=== PATIENT | female | born 1965 | race Caucasian/White ===

== ENCOUNTER 2019-10-31 16:45 | Inpatient (IN) | payer BC, SELFPAY ==
[2019-10-31] VITALS (9 sets, daily range): BP systolic 111–125; BP diastolic 58–67; PULSE 110–122; RESP 14–36; O2SAT 90–97; BMI 29.2
--- NOTE | ~2019-10-31 | XR_ITS ---
EXAMINATION: XR chest 2V EXAM DATE: 10/31/2019 17:51 INDICATION: Shortness of breath, history COPD. TECHNIQUE: Frontal and lateral projections of the chest obtained and reviewed. Comparison is made to prior examination from 10/18/2018. FINDINGS: Moderate chronic appearing hyperinflation. The lungs are clear. There are no pleural effu sions. The cardiomediastinal silhouette is within normal limits. There is no pneumothorax suspected . The bones are osteopenic. There are bony degenerative changes. IMPRESSION: Moderate hyperinflation. Reviewed, dictated and finalized at location A. HERY MANAGER IMPRESSION: Moderate hyperinflation.
[2019-10-31] MEDS: ALBUTEROL SULFATE NEB 2.5 MG/0.5 ML INH 15 MG INHALATION (17:11)
[2019-10-31] MEDS: IPRATROPIUM BR 0.02% INH SOLN 0.5 MG/2.5 ML VIAL 1.5 MG INHALATION (17:12)
--- NOTE | 2019-10-31 17:12 | ED.SOB ---
HPI - SOB/Dyspnea General Chief Complaint: Shortness of Breath/Dyspnea Stated Complaint: sob Time Seen by Provider: 10/31/19 17:12 Source: patient Mode of arrival: ambulatory Limitations: no limitations History of Present Illness HPI Narrative: The pt is a 54 y/o female who presents to the ED c/o SOB onset a few days ago. Pt states that she has a PMHx of COPD, and that she is on 2L of oxygen at rest and 3L of oxygen with activity typically. She states that her SOB has worsened over the past few days, and she notes that she has not been doing her breathing treatments of Budesonide and Albuterol. Pt states that this happened because she has felt so bad that she has not good at all. She notes that her condition was at its worst today, and that she struggled to even exhale. Pt notes that her cough has not changed and has been dry. She reports nausea, runny nose, and congestion, but denies CP, fever, and BLE swelling. MD elicited complaint: shortness of breath Pertinent past history: COPD Onset (ago): day(s) (a few) Context: other (Not doing breathing treatments) Timing: progressively worsening Known history of: COPD Associated symptoms: cough (Dry, not any worse than normal), nausea/vomiting (Nausea) and other (Congestion, runny nose) Related Data Home Medications Medication Instructions Recorded Confirmed albuterol sulfate 2.5 mg INHALATION DAILY PRN 10/31/19 10/31/19 albuterol sulfate [ProAir HFA] 90 mcg INHALATION DAILY PRN 10/31/19 10/31/19 apixaban [Eliquis] 5 mg PO BID 10/31/19 10/31/19 revefenacin [Yupelri] 175 mcg INHALATION DAILY 10/31/19 10/31/19 Allergies Allergy/AdvReac Type Severity Reaction Status Date / Time Penicillins Allergy Unknown Hives Verified 10/31/19 17:23 Review of Systems Review of Systems: All systems reviewed & are unremarkable except as noted in HPI and below Constitutional: Constitutional: Denies fever(s) ENT: Reports nasal congestion and Reports nasal discharge (Runny nose) Cardiovascular: Cardiovascular: Denies chest pain Respiratory: Respiratory: Reports cough (Dry, not any worse than normal) and Reports dyspnea Gastrointestinal: Gastrointestinal: Reports nausea Musculoskeletal: Musculoskeletal: Denies other (BLE swelling) PMFSH Past Medical History Medical History (Updated 10/31/19 @ 19:12 by Gina Baker MD) Anemia Angina at rest Asthma Bronchitis COPD (chronic obstructive pulmonary disease) Kidney stone On home oxygen therapy 2L at rest, 3L with activity Pulmonary embolism Seizure Surgical History Surgical History (Updated 10/31/19 @ 17:35 by Sherwin Gross) H/O section H/O tubal ligation History of right oophorectomy Hx of tonsillectomy Family History Family History (Updated 10/31/19 @ 22:26 by Zcak Winter, LINSEY) Grandparent Family history of cardiovascular disease Hypertension Mother Family history of cardiovascular disease Family history of elevated blood lipids Social History Social History (Updated 10/31/19 @ 17:35 by Sherwin Gross) Smoking packs per day: 1.5 Smoking cigarettes per day: 30.0 Years smoked: 34 Smoking pack-years: 51.00 Smoking status: Current some day smoker Second hand tobacco smoke exposure: Yes Alcohol intake: never Substance use: never Spiritual care concerns: No Agree to blood products: Yes Comments PCP: Dr. Downs Exam Const: General: alert; No diaphoretic Orientation/consciousness: patient oriented x3 Other: mild distress HENMT: Head: normocephalic and atraumatic Ears: hearing grossly normal bilaterally and external ears normal Mouth: Yes Normal oral and palatal mucosa present and Yes lip normal Throat: posterior oropharynx normal and tonsils normal Eyes: Conjunctivae: conjunctivae normal Pupils: Equal, round and reactive pupils present EOM: EOMs intact bilaterally Neck: Neck: normal visual inspection and no lymphadenopathy Chest: Chest palpation & insp
[2019-10-31] MEDS: methylPREDNISolone SOD SUCC 125 MG VIAL IV PUSH (17:34)
--- NOTE | 2019-10-31 17:34 | ECG_ITS ---
Measurements Intervals [place] Rate: 116 P: 74 [place]: 148 QRS: 88 QRSD: 86 T: 43 QT: 341 QTc: 474 Interpretive Statements SINUS TACHYCARDIA POSSIBLE RIGHT ATRIAL ENLARGEMENT POSSIBLE LEFT ATRIAL ENLARGEMENT INCOMPLETE RIGHT BUNDLE BRANCH BLOCK MINIMAL Q WAVES- INFERIOR LEADS BASELINE ARTIFACT- V1-V3 ABNORMAL ECG Electronically Signed On 10-31-2019 19:43:30 GOLD CHARMER by Fitz Green D.O.
[2019-10-31 17:36] LABS: Alveolar/Arterial O2 Gradient 84.8 mmHg; Base Excess ABG 15.9 mEq/l (+/-2.0); Carboxyhemoglobin 5.5 % THb (0-2.0); Fractional Inspired Oxygen 32 %; HCO3 ABG 45.3 mEq/l (22.0-26.0); Methemoglobin ABG 0.1 %THb (0-1.5); Oxygen Content ABG 14.9 %vol (16.0-22.0); Oxyhemoglobin 81.8 % THb (90.0-100.0); PCO2 ABG 81.4 mmHg (35.0-45.0); Reduced Hemoglobin 12.6 %THb (0-5.0); pH ABG 7.363 (7.350-7.450)
[2019-10-31 17:37] LABS: PO2 ABG 48.1 mmHg (80.0-100.0)
[2019-10-31 17:38] LABS: Device NASAL CANNULA; Site Drawn LEFT BRACHIAL
[2019-10-31 18:15] LABS: Basophils Absolute Auto 0.1 K/mm3 (0.0-0.1); Basophils Percent Auto 0.5 % (0.2-1.2); Eosinophils Absolute Auto 0.2 K/mm3 (0-0.3); Eosinophils Percent Auto 1.5 % (0-4.4); Hematocrit 39.5 % (37.0-47.0); Hemoglobin 11.9 g/dL (12.0-15.0); Immature Granulocyte Absolute 0.03 K/mm3 (0.00-0.031); Immature Granulocyte Percent A 0.3 % (0-0.5); Lymphocytes Absolute Auto 3.72 K/mm3 (0.9-3.2); Lymphocytes Percent Auto 33.9 % (18.3-44.2); Mean Corpuscular HGB Conc 30.1 g/dl (32-36); Mean Corpuscular Volume 96.3 fl (80-100); Monocytes Absolute Auto 0.8 K/mm3 (0.1-0.6); Monocytes Percent Auto 7.5 % (2.6-8.5); Neutrophils Absolute Auto 6.2 K/mm3 (1.3-6.7); Neutrophils Percent Auto 56.3 % (45.5-73.1); Platelet Count Result 187 k/mm3 (150-375); Red Cell Distribution Width 12.5 % (11.5-14.5)
[2019-10-31 18:30] LABS: Alanine Aminotransferase 16 U/L (4-35); Alkaline Phosphatase 64 U/L (38-126); Aspartate Amino Transferase 22 U/L (14-36); Bilirubin,Total 0.3 mg/dL (0.2-1.3); Blood Urea Nitrogen 8 mg/dL (7-17); Calcium 8.9 mg/dL (8.4-10.2); Carbon Dioxide > 40 mmol/L (22-30); Chloride 84 mmol/L (98-107); Estimated CRCL calculation 165 ml/min; Estimated Glomerular Filt Rate > 60; Glucose 121 mg/dL (65-105); Potassium 3.5 mmol/L (3.4-5.0); Sodium 133 mmol/L (137-145)
[2019-10-31] MEDS: SODIUM CHLORIDE 0.9% IV 1,000 ML 999 ML IV CONT (19:34)
--- NOTE | 2019-10-31 22:04 | ADMGEN ---
This patient, Jaclyn Kessler, was admitted to 2 Medical Room 260-01. Patient/family oriented to hospital policies and general routines including ID bracelet, bed and alarms, visiting hours, pain management, procedures, bathroom and other care routines, personal items, smoking policy, room service/diet, and visiting hours. Valuables list has been completed. Information on how to activate the Rapid Response Team has been discussed. Patient/Family are encouraged to report perceived risks to care and to ask questions if they do not understand what they are told or what they should do.
[2019-10-31] MEDS: LACTATED RINGERS 1,000 ML 125 ML IV CONT (22:51)
[2019-10-31] MEDS: methylPREDNISolone SOD SUCC 125 MG VIAL 60 MG IV PUSH (23:45)
[2019-11-01] VITALS (19 sets, daily range): BP systolic 100–123; BP diastolic 58–72; PULSE 77–124; RESP 16–28; TEMP 36.2–36.7; O2SAT 91–96
[2019-11-01] MEDS: ALBUTEROL SULFATE NEB 2.5 MG/0.5 ML INH 5 MG INHALATION (01:31)
[2019-11-01] MEDS: IPRATROPIUM BR 0.02% INH SOLN 0.5 MG/2.5 ML VIAL INHALATION ×4 (01:31→19:47)
[2019-11-01 05:13] LABS: Alveolar/Arterial O2 Gradient 28.6 mmHg; Base Excess ABG 13.9 mEq/l (+/-2.0); Carboxyhemoglobin 2.4 % THb (0-2.0); Fractional Inspired Oxygen 28 %; HCO3 ABG 44.2 mEq/l (22.0-26.0); Methemoglobin ABG 0.1 %THb (0-1.5); Oxyhemoglobin 88.7 % THb (90.0-100.0); PO2 ABG 61.2 mmHg (80.0-100.0); PO2 FiO2 Ratio Arterial Blood 2.19 %; Reduced Hemoglobin 8.8 %THb (0-5.0); pH ABG 7.294 (7.350-7.450)
[2019-11-01 05:16] LABS: PCO2 ABG 93.1 mmHg (35.0-45.0)
[2019-11-01 05:17] LABS: Device NASAL CANNULA; Modified Allen's Test Pass; Site Drawn LEFT RADIAL
[2019-11-01] MEDS: methylPREDNISolone SOD SUCC 125 MG VIAL 60 MG IV PUSH (05:29)
[2019-11-01 05:44] LABS: Basophils Percent Auto 0.2 % (0.2-1.2); Hematocrit 36.3 % (37.0-47.0); Hemoglobin 10.7 g/dL (12.0-15.0); Immature Granulocyte Absolute 0.02 K/mm3 (0.00-0.031); Immature Granulocyte Percent A 0.3 % (0-0.5); Lymphocytes Absolute Auto 0.59 K/mm3 (0.9-3.2); Lymphocytes Percent Auto 9.6 % (18.3-44.2); Mean Corpuscular HGB Conc 29.5 g/dl (32-36); Mean Corpuscular Hemoglobin 28.6 pg (26-34); Mean Corpuscular Volume 97.1 fl (80-100); Mean Platelet Volume 10.4 fl (7.4-10.4); Monocytes Percent Auto 0.5 % (2.6-8.5); Neutrophils Absolute Auto 5.5 K/mm3 (1.3-6.7); Neutrophils Percent Auto 89.4 % (45.5-73.1); Platelet Count Result 173 k/mm3 (150-375); Red Blood Count 3.74 M/mm3 (4.2-5.4); Red Cell Distribution Width 12.5 % (11.5-14.5); White Blood Count 6.2 K/mm3 (4.5-10.0)
[2019-11-01 06:25] LABS: Alanine Aminotransferase 14 U/L (4-35); Albumin Level 3.7 g/dL (3.5-5.1); Alkaline Phosphatase 47 U/L (38-126); Aspartate Amino Transferase 19 U/L (14-36); Bilirubin,Total 0.1 mg/dL (0.2-1.3); Blood Urea Nitrogen 7 mg/dL (7-17); Calcium 8.6 mg/dL (8.4-10.2); Carbon Dioxide > 40 mmol/L (22-30); Chloride 89 mmol/L (98-107); Estimated CRCL calculation 157 ml/min; Estimated Glomerular Filt Rate > 60; Glucose 126 mg/dL (65-105); Sodium 135 mmol/L (137-145)
[2019-11-01] MEDS: LACTATED RINGERS 1,000 ML 125 ML IV CONT ×2 (07:06→22:09)
[2019-11-01 08:48] LABS: Magnesium 1.9 mg/dL (1.6-2.3)
[2019-11-01] MEDS: BUDESONIDE RESPULE NEB 0.5 MG/2 ML AMP INHALATION ×2 (08:49→19:47)
[2019-11-01 10:14] LABS: Alveolar/Arterial O2 Gradient 72.7 mmHg; Base Excess ABG 10.3 mEq/l (+/-2.0); Carboxyhemoglobin 1.4 % THb (0-2.0); Fractional Inspired Oxygen 30 %; HCO3 ABG 37.4 mEq/l (22.0-26.0); Methemoglobin ABG 0.4 %THb (0-1.5); Oxygen Content ABG 15.1 %vol (16.0-22.0); Oxygen Saturation ABG 92.5 % (95.0-100.0); Oxyhemoglobin 91.6 % THb (90.0-100.0); PO2 ABG 66.9 mmHg (80.0-100.0); PO2 FiO2 Ratio Arterial Blood 2.23 %; Reduced Hemoglobin 6.6 %THb (0-5.0); Total Hemoglobin 11.7 g/dL (12.0-18.0)
[2019-11-01 10:15] LABS: PCO2 ABG 63.2 mmHg (35.0-45.0)
[2019-11-01 10:16] LABS: Device NON-INVASIVE VENT; Modified Allen's Test Pass; Non-Invasive Expiratory Pressure 6 CMH2O; Non-Invasive Inspiratory Pressure 14 CMH2O; Non-Invasive Vent Rate 14 /MIN; Site Drawn LEFT RADIAL
--- NOTE | 2019-11-01 10:17 | PCPTNOTE ---
attempted to see patient at 1015AM on 11/01/2019. per Nurse, patient status is changing and may be transferred. determined that PT evaluation should hold until decisions are made as to whether patient will change floors or not.
[2019-11-01] MEDS: APIXABAN 5 MG TABLET PO ×2 (11:30→18:48)
--- NOTE | 2019-11-01 12:17 | PM.CNPUL ---
Assessment and Plan Assessment and plan (1) COPD (chronic obstructive pulmonary disease): Code(s): J44.9 - Chronic obstructive pulmonary disease, unspecified Status: Acute Assessment and Plan: Likely exacerbated from not taking inhalers and nebulized therapy for 2-3 weeks while continuing to smoke. I do not see any evidence of acute bronchitis or pneumonia. - will d/c solumedrol - prednisone 30 mg PO OD for four more days - BNP to r/o component of CHF in presents of bilateral small pleural effusions. PVC maybe under represented on CXR in COPD patients. History of Present Illness History of Present Illness Consult date: 11/01/19 Reason for consult: dyspnea Chief complaint: COPD exacerbation Narrative: 54 y/o female with COPD on home O2 who still smokes about 4 cigs/day presents with increased dsypnea, wheezing and dry cough. She denies fever, chills, productive cough, sweats or URI symptoms. She admits to running out of her inhalers and nebulizers about 2-3 weeks ago and she started feeling worse after that. CXR on admission shows no infiltrates but does show small bilateral pleural effusions which are not new. Review of Systems Review of Systems: All systems reviewed & are unremarkable except as noted in HPI and below PMFSH Past Medical History Medical History (Updated 11/01/19 @ 12:22 by Michelle Deleon MD) Anemia Angina at rest Asthma Bronchitis COPD (chronic obstructive pulmonary disease) COPD (chronic obstructive pulmonary disease) Kidney stone On home oxygen therapy 2L at rest, 3L with activity Pulmonary embolism Seizure Surgical History Surgical History (Updated 10/31/19 @ 17:35 by Sherwin Gross) H/O section H/O tubal ligation History of right oophorectomy Hx of tonsillectomy Family History Family History (Updated 10/31/19 @ 22:26 by Zack Winter RN) Grandparent Family history of cardiovascular disease Hypertension Mother Family history of cardiovascular disease Family history of elevated blood lipids Social History Social History (Updated 10/31/19 @ 17:35 by Sherwin Gross) Smoking packs per day: 1.5 Smoking cigarettes per day: 30.0 Years smoked: 34 Smoking pack-years: 51.00 Smoking status: Current some day smoker Second hand tobacco smoke exposure: Yes Alcohol intake: never Substance use: never Spiritual care concerns: No Agree to blood products: Yes Meds Home Medications and Allergies Home Medications Medication Instructions Recorded Confirmed Type albuterol sulfate 2.5 mg INHALATION DAILY PRN 10/31/19 10/31/19 History albuterol sulfate [ProAir HFA] 90 mcg INHALATION DAILY PRN 10/31/19 10/31/19 History apixaban [Eliquis] 5 mg PO BID 10/31/19 10/31/19 History revefenacin [Yupelri] 175 mcg INHALATION DAILY 10/31/19 10/31/19 History Allergies Allergy/AdvReac Type Severity Reaction Status Date / Time Penicillins Allergy Unknown Hives Verified 10/31/19 17:23 Vital Signs Vital Signs - 24 hr 10/31/19 17:00 10/31/19 17:22 10/31/19 17:26 Temperature Pulse Rate 110 H 121 H Respiratory Rate 36 H 24 H Blood Pressure 125/65 Pulse Oximetry 93 10/31/19 18:00 10/31/19 18:30 10/31/19 20:03 Temperature Pulse Rate 121 H 122 H Respiratory Rate 26 H 31 H Blood Pressure 113/58 L Pulse Oximetry 95 94 10/31/19 21:25 10/31/19 21:56 10/31/19 22:09 Temperature Pulse Rate 122 H 122 H 120 H Respiratory Rate 27 H 14 24 H Blood Pressure 113/64 111/67 121/63 Pulse Oximetry 90 94 97 11/01/19 00:00 11/01/19 01:31 11/01/19 01:45 Temperature Pulse Rate 116 H 111 H 110 H Respiratory Rate 18 20 Blood Pressure Pulse Oximetry 93 94 11/01/19 04:00 11/01/19 06:00 11/01/19 08:50 Temperature 36.2 C L Pulse Rate 104 H 124 H 80 Respiratory Rate 24 H 28 H Blood Pressure 100/72 Pulse Oximetry 91 94 11/01/19 08:57 11/01/19 09:17 11/01/19 11:30 Temperature Pulse Rate 81 79
[2019-11-01 13:22] LABS: NT Pro B Type Natriuretic Pept 199 PG/ML (5-100)
--- NOTE | 2019-11-01 13:25 | HP_ITS ---
DATE OF SERVICE: 11/01/2019 TIME OF CONTACT: 0645. CHIEF COMPLAINT: Shortness of breath for several weeks. HISTORY OF PRESENT ILLNESS: The patient is a pleasant 54-year-old female with a past medical history of chronic hypercapnic and hypoxic respiratory failure due to COPD, who presented to the ER with 3 weeks of progressive shortness of breath with more significant shortness of breath over the last few days. The patient is usually on 2 L of oxygen at rest and 3 L of oxygen with activity. However, her shortness of breath has worsened over the last several weeks. She admits that she has not been doing her Pulmicort or albuterol treatments for quite sometime. She had stated to the ER staff that she did not do the treatments because she felt so bad, but she admitted at the time of my evaluation that she had actually felt that she was overmedicated and had elected to stop taking her medications. However, after sometime taking her medications, she noticed increasing shortness of breath that acutely worsened over the last couple of days. Her shortness of breath was worse, most severe on the resulting in coming into the ER at around 05:00 p.m. She feels that she cannot exhale. She has not noticed any significant change in her chronic dry cough. She has not had any recent ill contacts. She does continue to smoke about 4 cigarettes a day, but this has been a decrease from her past use of about a [id number] cigarettes per day. She has had some mild rhinorrhea and nasal congestion as well as some nausea. She denies any fevers or chills. She has not noticed any lower extremity swelling. She sleeps propped up on her side and cannot sleep laying flat. She reports that her appetite has been fair and reports normal bowel movements. She has not had any urinary incontinence, dysuria, changes in urinary frequency or urgency. She does follow with Dr. Downs, as outpatient for her COPD. The patient is on Trilogy machine at home for obstructive sleep apnea. She did not bring her Trilogy with her, but thinks that she can get her to bring her Trilogy. Overnight, the patient had been placed on an auto titrating BiPAP. However, repeat ABG this morning had demonstrated worsening hypercapnic respiratory failure with relative improvement in her PO2, but the specimen was not quite as next specimens from the night before. REVIEW OF SYSTEMS: Except as documented, all systems were reviewed and are negative. PAST MEDICAL HISTORY: 1. COPD resulting in chronic hypercapnic and hypoxic respiratory failure. Diagnosed approximately 5 years ago. 2. Obstructive sleep apnea with Trilogy use at home. 3. Continue tobacco use. 4. Bilateral pulmonary embolism, October 2017 and bilateral lower lobes without evidence of lower extremity DVT on chronic anticoagulation with Eliquis. 5. Mild pulmonary hypertension with right ventricular systolic pressure of 40 in 2018 with repeat echocardiogram, October 2018 demonstrating diastolic dysfunction. Ejection fraction is 65% with elevated left ventricular pressures, mild enlargement of the right ventricle, moderate pulmonary hypertension with RVSP of 58, and elevated right atrial pressure is greater than 15 mmHg. 6. Tonsillectomy. 7. . 8. Tubal ligation. 9. Taking anti-seizures as a child with no seizures after the age of 13. 10. Anemia. SOCIAL HISTORY: The patient has been for at least 30 years. Her daughter at bedside helps provide some of the history. She has 2 other children as well. The patient has smoked up to 1.5 packs per day for approximately 35 years. She is currently down to smoking about 4 cigarettes a day, but I suspect that this is a recent change. FAMILY HISTORY: Mother who had COPD and diabetes. Brother who had diabetes.
--- NOTE | 2019-11-01 15:59 | PM.IMPN ---
Progress Note: A&P Assessment and Plan (1) Acute exacerbation of chronic obstructive airways disease: Code(s): J44.1 - Chronic obstructive pulmonary disease with (acute) exacerbation Status: Acute Assessment and Plan: 11/01/19 15:59 Patient is a 54-year-old female with a history of chronic respiratory failure with hypoxia and hypercapnia patient unfortunately still smokes presented emergency department with worsening respiratory symptoms requiring more oxygen and was not able to ambulate very far presented emergency department for further evaluation, patient initial PCO was 83 patient was started on BiPAP given Solu-Medrol 125 mg IV and updraft and BiPAP was continue this morning her CO2 has decreased to 62 is clinically stable, we have added Solu-Medrol 60 mg every 6 hours Pulmicort and doxycycline to cover for atypicals will continue to monitor the patient taper Solu-Medrol as her symptoms improved, will remove BiPAP place the patient on nasal cannula and monitor tolerate (2) COPD (chronic obstructive pulmonary disease): Code(s): J44.9 - Chronic obstructive pulmonary disease, unspecified Status: Acute Assessment and Plan: plan is above. (3) Seizure: Code(s): R56.9 - Unspecified convulsions Status: Acute Assessment and Plan: Will continue home regimen and monitor (4) Pulmonary embolism: Code(s): I26.99 - Other pulmonary embolism without acute cor pulmonale Status: Acute Assessment and Plan: Patient with history of DVT and pulmonary emboli will continue Eliquis Subjective Date/time seen: 11/01/19 15:59 Patient is a 54-year-old female with a history of chronic respiratory failure with hypoxia and hypercapnia patient unfortunately still smokes presented emergency department with worsening respiratory symptoms requiring more oxygen and was not able to ambulate very far presented emergency department for further evaluation, patient initial PCO was 83 patient was started on BiPAP given Solu-Medrol 125 mg IV and updraft and BiPAP was continue this morning her CO2 has decreased to 62 is clinically stable, we have added Solu-Medrol 60 mg every 6 hours Pulmicort and doxycycline to cover for atypicals will continue to monitor the patient taper Solu-Medrol as her symptoms improved, will remove BiPAP place the patient on nasal cannula and monitor tolerate Review of Systems Review of Systems: All systems reviewed & are unremarkable except as noted in HPI and below Exam Narrative: Exam Narrative: Patient appears chronically ill older than her age Const: General: comfortable and no acute distress HENMT: General nose exam: Normal nares present Mouth: Yes moist mucous membranes Eyes: General: appearance normal, both eyes and all related structures Sclera: sclerae normal Neck: Neck: supple Resp: Other: Bilateral poor air entry with harsh breath sounds Cardio: Rate: regular rate Rhythm: regular rhythm GI: Auscultation: normal bowel sounds Skin: General skin exam: normal color and no rashes or lesions noted Neuro: Speech: normal speech Sensory Exam: normal sensation Extrem: General: normal to inspection Psych: Affect: Anxious affect present Objective Data Vital Signs Vital Signs: Vital Signs - 24 hr 10/31/19 17:00 10/31/19 17:22 10/31/19 17:26 Temperature Pulse Rate 110 H 121 H Respiratory Rate 36 H 24 H Blood Pressure 125/65 Pulse Oximetry 93 10/31/19 18:00 10/31/19 18:30 10/31/19 20:03 Temperature Pulse Rate 121 H 122 H Respiratory Rate 26 H 31 H Blood Pressure 113/58 L Pulse Oximetry 95 94 10/31/19 21:25 10/31/19 21:56 10/31/19 22:09 Temperature Pulse Rate 122 H 122 H 120 H Respiratory Rate 27 H 14 24 H Blood Pressure 113/64 111/67 121/63 Pulse Oximetry 90 94 97 11/01/19 00:00 11/01/19 01:31 11/01/19 01:45 Temperature Pulse Rate 116 H 111 H 110 H Respiratory Rate 18 20 Blood Pressure Pulse
[2019-11-02] VITALS (18 sets, daily range): BP systolic 117–130; BP diastolic 61–75; PULSE 79–118; RESP 18–24; TEMP 36.2–37.4; O2SAT 93–95
[2019-11-02] MEDS: IPRATROPIUM BR 0.02% INH SOLN 0.5 MG/2.5 ML VIAL INHALATION ×4 (03:02→19:37)
[2019-11-02] MEDS: LACTATED RINGERS 1,000 ML 125 ML IV CONT ×2 (05:32→15:34)
[2019-11-02 06:12] LABS: Hematocrit 32.4 % (37.0-47.0); Hemoglobin 9.5 g/dL (12.0-15.0); Mean Corpuscular HGB Conc 29.3 g/dl (32-36); Mean Corpuscular Hemoglobin 28.2 pg (26-34); Mean Corpuscular Volume 96.1 fl (80-100); Mean Platelet Volume 10.6 fl (7.4-10.4); Platelet Count Result 169 k/mm3 (150-375); Red Blood Count 3.37 M/mm3 (4.2-5.4); Red Cell Distribution Width 12.9 % (11.5-14.5); White Blood Count 12.4 K/mm3 (4.5-10.0)
[2019-11-02 06:44] LABS: Blood Urea Nitrogen 10 mg/dL (7-17); Calcium 8.3 mg/dL (8.4-10.2); Carbon Dioxide > 40 mmol/L (22-30); Chloride 93 mmol/L (98-107); Estimated CRCL calculation 157 ml/min; Estimated Glomerular Filt Rate > 60; Glucose 77 mg/dL (65-105); Potassium 3.4 mmol/L (3.4-5.0); Sodium 137 mmol/L (137-145)
[2019-11-02 06:58] LABS: Iron 96 ug/dL (37-170)
[2019-11-02 07:07] LABS: Percent Iron Saturation 38 % (20-50)
[2019-11-02] MEDS: BUDESONIDE RESPULE NEB 0.5 MG/2 ML AMP INHALATION ×2 (08:34→19:37)
[2019-11-02] MEDS: predniSONE 20 MG, predniSONE 10 MG 30 MG PO (09:29)
[2019-11-02] MEDS: APIXABAN 5 MG TABLET PO ×2 (09:29→17:10)
[2019-11-02] MEDS: POTASSIUM CHLORIDE 20 MEQ PACKET (FOR LIQUID) 40 MEQ PO (09:29)
--- NOTE | 2019-11-02 11:07 | PM.PNPUL ---
Progress Note: A&P Assessment and Plan (1) COPD (chronic obstructive pulmonary disease): Code(s): J44.9 - Chronic obstructive pulmonary disease, unspecified Status: Acute Assessment and Plan: Likely exacerbated from not taking inhalers and nebulized therapy for 2-3 weeks while continuing to smoke. I do not see any evidence of acute bronchitis or pneumonia. - will d/c solumedrol - prednisone 30 mg PO OD for three more days - BNP slightly elevated. In light of small bilateral pleural effusions I will order a 2D echo to r/o any signfiicant sytolic, diastolic dysfunction or valvular heart disease. - I've ordered outpatient pulmonary rehab for her. Time Spent With Patient Time with patient: 25 - 35 minutes Subjective Date/time seen: 11/02/19 11:07 Interval history: Doing well. Still very short of breath with minimal exertion such as going walking to bath room. BNP slightly elevated at 199. The patient denies chest pain or history of heart disease. Review of Systems Review of Systems: All systems reviewed & are unremarkable except as noted in HPI and below Exam Const: General: comfortable and no acute distress HENMT: Mouth: Yes moist mucous membranes Neck: Neck: supple and no JVD Resp: Auscultation: no crackles, no rales, no rhonchi, no wheezes and diminished lung sounds Cardio: Rate: regular rate Rhythm: regular rhythm GI: Auscultation: normal bowel sounds Neuro: Speech: normal speech Extrem: General: normal to inspection, no edema and no pedal edema Psych: Mental Status: mental status grossly normal Affect: normal affect Objective Data Vital Signs Vital Signs: Vital Signs - 24 hr 11/01/19 11:30 11/01/19 12:00 11/01/19 14:00 Temperature 36.7 C Pulse Rate 90 81 Respiratory Rate 20 Blood Pressure 111/60 Pulse Oximetry 91 96 11/01/19 14:28 11/01/19 14:38 11/01/19 16:00 Temperature Pulse Rate 82 81 105 H Respiratory Rate 20 20 Blood Pressure Pulse Oximetry 11/01/19 19:47 11/01/19 19:56 11/01/19 20:00 Temperature Pulse Rate 88 92 102 H Respiratory Rate 20 20 Blood Pressure Pulse Oximetry 11/01/19 21:15 11/02/19 00:00 11/02/19 02:13 Temperature 36.3 C L 36.2 C L Pulse Rate 108 H 100 96 Respiratory Rate 16 18 Blood Pressure 123/58 L 127/63 Pulse Oximetry 94 93 11/02/19 03:03 11/02/19 04:00 11/02/19 06:00 Temperature 36.4 C Pulse Rate 81 99 99 Respiratory Rate 20 18 Blood Pressure 119/62 Pulse Oximetry 95 11/02/19 08:00 11/02/19 08:34 11/02/19 08:37 Temperature Pulse Rate 83 85 Respiratory Rate 20 Blood Pressure Pulse Oximetry 93 11/02/19 08:46 Temperature Pulse Rate 88 Respiratory Rate 18 Blood Pressure Pulse Oximetry Intake/Output Intake/Output: Intake & Output 10/30/19 10/31/19 11/01/19 11/02/19 23:59 23:59 23:59 23:59 Intake Total 1000 3050 2302 Balance 1000 3050 2302 Meds/Results Medications: Active Medications Generic Name Dose Route Start Last Admin Trade Name Freq PRN Reason Stop Dose Admin Apixaban 5 mg 11/01/19 09:00 11/02/19 09:29 Eliquis PO 5 mg BID DONTRELL Administration Budesonide 0.5 mg 11/01/19 08:00 11/02/19 08:34 Pulmicort Respule Neb INHALATION 0.5 mg Q12HRT DONTRELL Administration Lactated Ringer's 1,000 mls @ 125 mls/hr 10/31/19 20:30 11/02/19 10:33 Lr - Lactated Ringers Iv IV CONT 125 mls/hr .Q8H DONTRELL Infusion Doxycycline Hyclate 100 mg/ 100 mls @ 100 mls/hr 11/01/19 09:00 11/02/19 10:33 Dextrose IVPB Infused Q12HR DONTRELL Infusion Ipratropium [place] 0.5 mg 11/01/19 02:00 11/02/19 08:34 Atrovent Neb INHALATION 0.5 mg Q6HRT DONTRELL Administration Levalbuterol HCl 1.25 mg 11/01/19 08:00 11/02/19 08:34 Xopenex 1.25 Mg/0.5 Ml INHALATION 1.25 mg Q6HRT DONTRELL Administration Ondansetron HCl 4 mg 10/31/19 20:27 Zofran Inj IV PUSH Q4H PRN Nausea Prednisone 20 mg/ Prednisone 30 mg 11/02
[2019-11-02 11:25] LABS: IFOB Positive Control Positive; Immunochemical Fecal Occult Bl Negative (N)
--- NOTE | 2019-11-02 12:28 | PM.IMPN ---
Progress Note: A&P Assessment and Plan (1) Acute exacerbation of chronic obstructive airways disease: Code(s): J44.1 - Chronic obstructive pulmonary disease with (acute) exacerbation Status: Acute Assessment and Plan: 11/02/19 12:28 Patient is a 54-year-old female with a history of chronic respiratory failure with hypoxia and hypercapnia patient unfortunately still smokes presented emergency department with worsening respiratory symptoms requiring more oxygen and was not able to ambulate very far presented emergency department for further evaluation, patient initial PCO was 83 patient was started on BiPAP given Solu-Medrol 125 mg IV and updraft and BiPAP was continue this morning her CO2 has decreased to 62 is clinically stable, we have added Solu-Medrol 60 mg every 6 hours Pulmicort and doxycycline to cover for atypicals, however patient was seen by corrections corporal today does not suspect any infection antibiotics been stopped and Solu-Medrol was tapered to prednisone for next 3 days, he also suspect patient may have a touch of CHF to further evaluate cardiac echo is ordered will follow-up and monitor, patient still has a shortness of breath denies any chest pain palpitation fever or chills (2) COPD (chronic obstructive pulmonary disease): Code(s): J44.9 - Chronic obstructive pulmonary disease, unspecified Status: Acute Assessment and Plan: plan is above. (3) Seizure: Code(s): R56.9 - Unspecified convulsions Status: Acute Assessment and Plan: Will continue home regimen and monitor (4) Pulmonary embolism: Code(s): I26.99 - Other pulmonary embolism without acute cor pulmonale Status: Acute Assessment and Plan: Patient with history of DVT and pulmonary emboli will continue Eliquis Subjective Date/time seen: 11/02/19 12:28 Patient is a 54-year-old female with a history of chronic respiratory failure with hypoxia and hypercapnia patient unfortunately still smokes presented emergency department with worsening respiratory symptoms requiring more oxygen and was not able to ambulate very far presented emergency department for further evaluation, patient initial PCO was 83 patient was started on BiPAP given Solu-Medrol 125 mg IV and updraft and BiPAP was continue this morning her CO2 has decreased to 62 is clinically stable, we have added Solu-Medrol 60 mg every 6 hours Pulmicort and doxycycline to cover for atypicals, however patient was seen by corrections corporal today does not suspect any infection antibiotics been stopped and Solu-Medrol was tapered to prednisone for next 3 days, he also suspect patient may have a touch of CHF to further evaluate cardiac echo is ordered will follow-up and monitor, patient still has a shortness of breath denies any chest pain palpitation fever or chills Review of Systems Review of Systems: All systems reviewed & are unremarkable except as noted in HPI and below Exam Narrative: Exam Narrative: Patient appears chronically ill older than her age Const: General: comfortable and no acute distress HENMT: General nose exam: Normal nares present Mouth: Yes moist mucous membranes Eyes: General: appearance normal, both eyes and all related structures Sclera: sclerae normal Neck: Neck: supple Resp: Other: Bilateral poor air entry with harsh breath sounds Cardio: Rate: regular rate Rhythm: regular rhythm GI: Auscultation: normal bowel sounds Skin: General skin exam: normal color and no rashes or lesions noted Neuro: Speech: normal speech Sensory Exam: normal sensation Extrem: General: normal to inspection Psych: Affect: Anxious affect present Objective Data Vital Signs Vital Signs: Vital Signs - 24 hr 11/01/19 14:00 11/01/19 14:28 11/01/19 14:38 Temperature 98.0 F Pulse Rate 81 82 81 Respiratory Rate 20 20 20 Blood Pressure 111/60 Pulse Oximetry 96 11/01/19 16:00 11/01/19 19:47 11/01/19 19:56 Temperature Pulse R
[2019-11-03] VITALS (9 sets, daily range): BP systolic 101; BP diastolic 61; PULSE 70–96; RESP 16–18; TEMP 36.7; O2SAT 94–99
--- NOTE | 2019-11-03 | ECHO_ITS ---
Patient Info Name: Jaclyn Kessler Age: 54 years : 1965 Gender: Female Ht: 62 in Wt: 160 lbs BSA: 1.81 m2 HR: 99 bpm BP: 101 / 78 mmHg Technical Quality: Good Exam Date: 11/03/2019 10:30 AM Exam Location: [facility] Pul[facility] Patient Status: Inpatient Admit Date: 11/01/2019 Staff Ordering Physician: Michelle Deleon MD Inside Phone Sales: Sherwin Ortiz RDCS, RT Attending Provider: Shweta Bustos DO Referring Physician: Pancho WILSON; Exam Type: CA echo doppler color flow Study Info Indications I50.9 - Heart failure, unspecified Complete two-dimensional, color flow and Doppler transthoracic echocardiogram is performed. Summary 1. Left ventricular chamber dimension is normal. 2. Left ventricular systolic function is normal, estimated at 60-65%. 3. The left ventricular diastolic function is grade I diastolic dysfunction. 4. E/e' 8 is minimally elevated. 5. Global longitudinal strain is normal at -20.5%. 6. There is mild mitral valve regurgitation. Left Ventricle E/e' 8 is minimally elevated. Global longitudinal strain is normal at -20.5%. Left ventricular chamber dimension is normal. Left ventricular systolic function is normal, estimated at 60-65%. The left ventricular diastolic function is grade I diastolic dysfunction. Right Ventricle Right ventricular chamber dimension is normal. Right ventricular systolic function is normal. Left Atria Left atrial chamber dimension is normal. Right Atria Right atrial chamber dimension is normal. Aortic Valve There is no aortic valve stenosis. There is no aortic valve regurgitation. Pulmonic Valve There is no pulmonic regurgitation. Mitral Valve There is no mitral valve stenosis. There is mild mitral valve regurgitation. Tricuspid Valve There is no tricuspid valve regurgitation. Pericardium/Pleural There is no pericardial effusion. Inferior Vena Cava Normal inferior vena cava with >50% collapse upon inspiration consistent with normal right atrial pressure, 5 mmHg. Aorta The aortic root size at the sinus of Valsalva is normal. Left Ventricular Outflow Tract Name Value Normal LVOT 2D LVOT Diameter 2.1 cm LVOT Doppler LVOT Peak Gradient 6 mmHg LVOT Mean Gradient 3 mmHg LVOT VTI 24 cm LVOT VTI/AV VTI Ratio 0.7 LVOT Stroke Volume 82 ml LVOT CO 7.5 l/min LVOT CI 4.1 l/min/m2 Pulmonic Valve Name Value Normal PV Doppler PV Peak Gradient 4 mmHg Mitral Valve Name Value Normal
[2019-11-03] MEDS: IPRATROPIUM BR 0.02% INH SOLN 0.5 MG/2.5 ML VIAL INHALATION ×2 (01:35→09:14)
[2019-11-03] MEDS: LACTATED RINGERS 1,000 ML 125 ML IV CONT (02:56)
[2019-11-03 06:28] LABS: Hematocrit 34.1 % (37.0-47.0); Hemoglobin 10.4 g/dL (12.0-15.0); Mean Corpuscular HGB Conc 30.5 g/dl (32-36); Mean Corpuscular Hemoglobin 29.3 pg (26-34); Mean Corpuscular Volume 96.1 fl (80-100); Mean Platelet Volume 10.5 fl (7.4-10.4); Platelet Count Result 186 k/mm3 (150-375); Red Blood Count 3.55 M/mm3 (4.2-5.4); White Blood Count 9.8 K/mm3 (4.5-10.0)
[2019-11-03 06:43] LABS: Blood Urea Nitrogen 7 mg/dL (7-17); Calcium 8.5 mg/dL (8.4-10.2); Carbon Dioxide > 40 mmol/L (22-30); Chloride 93 mmol/L (98-107); Estimated CRCL calculation 157 ml/min; Estimated Glomerular Filt Rate > 60; Glucose 73 mg/dL (65-105); Potassium 3.7 mmol/L (3.4-5.0); Sodium 137 mmol/L (137-145)
[2019-11-03] MEDS: predniSONE 20 MG, predniSONE 10 MG 30 MG PO (08:41)
[2019-11-03] MEDS: APIXABAN 5 MG TABLET PO (08:41)
[2019-11-03] MEDS: BUDESONIDE RESPULE NEB 0.5 MG/2 ML AMP INHALATION (09:14)
--- NOTE | 2019-11-03 11:42 | PM.PNPUL ---
Progress Note: A&P Assessment and Plan (1) COPD (chronic obstructive pulmonary disease): Code(s): J44.9 - Chronic obstructive pulmonary disease, unspecified Status: Acute Assessment and Plan: Likely exacerbated from not taking inhalers and nebulized therapy for 2-3 weeks while continuing to smoke. There is no evidence of acute bronchitis or pneumonia. - continue pred taper. - prednisone 30 mg PO OD for two more days - BNP slightly elevated. In light of small bilateral pleural effusions. -2D echo shows grade I daistolic dysfunction, normal Left and Right vent function. - She will proceed with outpatient pulmonary rehab for her. She has an appointment the office scheduled. -2 L/min with rest, 3 L/min with exertion, no smoking. Subjective Date/time seen: 11/03/19 11:42 Interval history: Doing well. She feels better today, less short of breath with walking. She is not coughing, does not have sputum production. She says that she was not taking her inhalers for 2-3 weeks, was not increasing her O2 to 3 L/min with exertion, using at 2 L/min as she does at rest. Sammy is at the bedside. Echo from today shows grade I diastolic dysfunction. BNP was slightly elevated at 199. The patient denies chest pain or history of heart disease. She has no history of hypertension. Review of Systems Review of Systems: All systems reviewed & are unremarkable except as noted in HPI and below Exam Const: General: comfortable and no acute distress HENMT: Mouth: Yes moist mucous membranes Neck: Neck: supple and no JVD Resp: Auscultation: no crackles, no rales, no rhonchi, no wheezes and diminished lung sounds Cardio: Rate: regular rate Rhythm: regular rhythm GI: Auscultation: normal bowel sounds Neuro: Speech: normal speech Extrem: General: normal to inspection (Right calf slightly larger than left, nontender. This is her baseline. ), no edema and no pedal edema Psych: Mental Status: mental status grossly normal Affect: normal affect Objective Data Vital Signs Vital Signs: Vital Signs - 24 hr 11/02/19 12:00 11/02/19 14:00 11/02/19 14:36 Temperature 37.1 C Pulse Rate 112 H 106 H 83 Respiratory Rate 24 H 18 Blood Pressure 130/75 Pulse Oximetry 93 11/02/19 14:44 11/02/19 16:00 11/02/19 19:37 Temperature Pulse Rate 85 91 79 Respiratory Rate 18 18 Blood Pressure Pulse Oximetry 11/02/19 19:46 11/02/19 20:00 11/02/19 23:04 Temperature 37.4 C Pulse Rate 88 118 H 97 Respiratory Rate 18 18 18 Blood Pressure 117/61 Pulse Oximetry 93 95 11/03/19 00:00 11/03/19 01:36 11/03/19 01:45 Temperature Pulse Rate 79 71 70 Respiratory Rate 18 18 Blood Pressure Pulse Oximetry 11/03/19 04:00 11/03/19 06:16 11/03/19 08:00 Temperature 36.7 C Pulse Rate 80 78 79 Respiratory Rate 16 Blood Pressure 101/61 Pulse Oximetry 99 11/03/19 09:16 11/03/19 09:17 11/03/19 09:28 Temperature Pulse Rate 89 96 Respiratory Rate 18 18 Blood Pressure Pulse Oximetry 94 Intake/Output Intake/Output: Intake & Output 10/31/19 11/01/19 11/02/19 11/03/19 23:59 23:59 23:59 23:59 Intake Total 1000 3050 5380 480 Balance 1000 3050 5380 480 Meds/Results Medications: Active Medications Generic Name Dose Route Start Last Admin Trade Name Joséq PRN Reason Stop Dose Admin Apixaban 5 mg 11/01/19 09:00 11/03/19 08:41 Eliquis PO 5 mg BID DONTRELL Administration Budesonide 0.5 mg 11/01/19 08:00 11/03/19 09:14 Pulmicort Respule Neb INHALATION 0.5 mg Q12HRT DONTRELL Administration Lactated Ringer's 1,000 mls @ 125 mls/hr 10/31/19 20:30 11/03/19 02:56 Lr - Lactated Ringers Iv IV CONT 125 mls/hr .Q8H DONTRELL Administration Doxycycline Hyclate 100 mg/ 100 mls @ 100 mls/hr 11/01/19 09:00 11/02/19 21:40 Dextrose IVPB Infused Q12HR DONTRELL Infusion Ipratropium Creede 0.5 mg 11/01/19 02:00 11/03/19 09:14 Atrovent Neb INHALATION 0.5 mg
--- NOTE | 2019-11-03 11:54 | PM.DS ---
DS: Diagnosis Admitting Diagnosis Admitting Diagnosis: Chronic obstructive pulmonary disease, unspecified Discharge Diagnosis (1) Acute exacerbation of chronic obstructive airways disease: Code(s): J44.1 - Chronic obstructive pulmonary disease with (acute) exacerbation Status: Acute Assessment and Plan: 11/02/19 12:28 Patient is a 54-year-old female with a history of chronic respiratory failure with hypoxia and hypercapnia patient unfortunately still smokes presented emergency department with worsening respiratory symptoms requiring more oxygen and was not able to ambulate very far presented emergency department for further evaluation, patient initial PCO was 83 patient was started on BiPAP given Solu-Medrol 125 mg IV and updraft and BiPAP was continue this morning her CO2 has decreased to 62 is clinically stable, we have added Solu-Medrol 60 mg every 6 hours Pulmicort and doxycycline to cover for atypicals, however patient was seen by color tester today does not suspect any infection antibiotics been stopped and Solu-Medrol was tapered to prednisone for next 3 days, he also suspect patient may have a touch of CHF to further evaluate cardiac echo is ordered will follow-up and monitor, patient still has a shortness of breath denies any chest pain palpitation fever or chills (2) COPD (chronic obstructive pulmonary disease): Code(s): J44.9 - Chronic obstructive pulmonary disease, unspecified Status: Acute Assessment and Plan: plan is above. (3) Seizure: Code(s): R56.9 - Unspecified convulsions Status: Acute Assessment and Plan: Will continue home regimen and monitor (4) Pulmonary embolism: Code(s): I26.99 - Other pulmonary embolism without acute cor pulmonale Status: Acute Assessment and Plan: Patient with history of DVT and pulmonary emboli will continue Eliquis DS: Summary Hospital Course Reason for hospitalization: The patient is a pleasant 54-year-old female with a past medical history of chronic hypercapnic and hypoxic respiratory failure due to COPD, who presented to the ER with 3 weeks of progressive shortness of breath with more significant shortness of breath over the last few days. The patient is usually on 2 L of oxygen at rest and 3 L of oxygen with activity. However, her shortness of breath has worsened over the last several weeks. She admits that she has not been doing her Pulmicort or albuterol treatments for quite sometime. She had stated to the ER staff that she did not do the treatments because she felt so bad, but she admitted at the time of my evaluation that she had actually felt that she was overmedicated and had elected to stop taking her medications. However, after sometime taking her medications, she noticed increasing shortness of breath that acutely worsened over the last couple of days. Her shortness of breath was worse, most severe on the resulting in coming into the ER at around 05:00 p.m. She feels that she cannot exhale. She has not noticed any significant change in her chronic dry cough. She has not had any recent ill contacts. She does continue to smoke about 4 cigarettes a day, but this has been a decrease from her past use of about a [id number]-half cigarettes per day. She has had some mild rhinorrhea and nasal congestion as well as some nausea. She denies any fevers or chills. She has not noticed any lower extremity swelling. She sleeps propped up on her side and cannot sleep laying flat. She reports that her appetite has been fair and reports normal bowel movements. She has not had any urinary incontinence, dysuria, changes in urinary frequency or urgency. She does follow with Dr. Downs, as outpatient for her COPD. The patient is on Trilogy machine at home for obstructive sleep apnea. She did not bring her Trilogy with her, but thinks that she can get her to bring her Trilogy. Overnight, the patient had
== END 2019-11-03 13:00 | disposition home or self-care (01) | DRG 189 ==
LOC: ANHED 20:31 → ANH2MED 21:25
PROVIDERS: Emergency Medicine; Internal Medicine Critical Care Medicine; Admitting Provider Internal Medicine; Emergency Provider General Practice; PCP Family Medicine; Visit Provider Family Medicine
DX: J96.22 Acute and chronic respiratory failure with hypercapnia (principal); J44.1 Chronic obstructive pulmonary disease with (acute) exacerbation; J96.21 Acute and chronic respiratory failure with hypoxia; Z28.21 Immunization not carried out because of patient refusal; F17.210 Nicotine dependence, cigarettes, uncomplicated; Z09 Encounter for follow-up examination after completed treatment for conditions other than malignant neoplasm; Z99.81 Dependence on supplemental oxygen; T48.6X6A Underdosing of antiasthmatics, initial encounter; Z91.128 Patient's intentional underdosing of medication regimen for other reason; G47.33 Obstructive sleep apnea (adult) (pediatric); Z86.711 Personal history of pulmonary embolism; I27.20 Pulmonary hypertension, unspecified; Z86.718 Personal history of other venous thrombosis and embolism; Z87.442 Personal history of urinary calculi; Z90.721 Acquired absence of ovaries, unilateral
CPT/HCPCS: 36415; 36600; 71046; 80048; 80053; 82274; 82375; 82607; 82728; 82746; 82805; 83050; 83540; 83550; 83735; 83880; 84443; 85025; 85027; 93005; 93306; 94002; 94640; 94660; 96361; 96365; 96374; 96375; 96376; 97110; 97161; 97165; 97530; 99285; A9270; G0378; J2930; J7030; J7120; J7512

== ENCOUNTER 2019-12-21 16:18 | Inpatient (IN) | payer BC, SELFPAY ==
[2019-12-21] VITALS (17 sets, daily range): BP systolic 98–121; BP diastolic 60–67; PULSE 97–142; RESP 19–38; TEMP 36.3–37.1; O2SAT 92–98; BMI 28.6
--- NOTE | ~2019-12-21 | CT_ITS ---
EXAMINATION: CTA chest PE protocol DATE: 12/21/2019 17:09 INDICATION: Shortness of breath, history of pulmonary embolism TECHNIQUE: Computed tomography angiography (CTA) of the chest was performed with 100 mL Omnipaque-350 intravenous contrast timed to evaluate the pulmonary arteries. Coronal maximum intensity projection 3D-reconstructions were created by the technologist. The dose-length product (DLP) was 256.98 mGy-cm. Automated exposure control and iterative reconstruction technique were employed. COMPARISON: 10/19/2018 FINDINGS: The pulmonary arteries are well-opacified. There are pulmonary emboli in segmental arteries of the left lower lobe. There is mild emphysema. Patchy bilateral airspace opacities are present. Th ere is no pleural effusion or pneumothorax. The heart size is normal. There is mild bilateral hilar l ymphadenopathy. Calcified subcarinal lymph nodes and punctate calcifications of the spleen are consis tent with old granulomatous disease. IMPRESSION: 1. Pulmonary emboli in the left lower lobe. These findings were discussed with Dr. Mireya Cowart MD in the Emergency Department at 1740 hours on 12/21/2019. 2. Patchy bilateral airspace opacities, likely infectious or inflammatory. 3. Mild emphysema. 4. Mild bilateral hilar lymphadenopathy, likely reactive. Reviewed, dictated and finalized at location A.
--- NOTE | ~2019-12-21 | XR_ITS ---
EXAMINATION: XR chest 1V portable INDICATION: Shortness of breath TECHNIQUE: Portable AP chest at 1716 hours COMPARISON: 10/31/[address] from today FINDINGS: There are patchy bilateral airspace opacities. The lungs are hyperinflated. The heart size is normal. There is no pleural effusion or pneumothorax. The cardiomediastinal silhouette is normal. IMPRESSION: 1. Patchy bilateral airspace opacities, likely infectious or inflammatory. 2. Mild emphysema. Reviewed, dictated and finalized at location A.
--- NOTE | 2019-12-21 16:19 | ED.SOB ---
HPI - SOB/Dyspnea General Chief Complaint: Shortness of Breath/Dyspnea Stated Complaint: sob Time Seen by Provider: 12/21/19 16:18 Source: patient Mode of arrival: EMS Limitations: no limitations History of Present Illness HPI Narrative: A 54 y/o female presents to the ED, via EMS, with c/o SOB. Pt states that the SOB started 4 days ago and has been constant since. She notes that she had sore throat and otalgia 2 days ago, but it resolved yesterday. Pt has a PMHx of COPD and PE. She takes Eliquis daily, but has not for the past 2 weeks due to insurance issues. She adds that her SOB feels similar to when she had her PE. Pt reports fever and sweats. She adds that her son is diagnosed with a virus, but it is not coronavirus. Pt is a smoker and smokes .35PPD. She is on 3L home O2 during exertion and 2.5L during rest. MD elicited complaint: shortness of breath Pertinent past history: COPD and PE Onset (ago): day(s) (4) Context: medication noncompliance Timing: constant Severity: similar to previous episodes Known history of: COPD and PE Associated symptoms: fever and diaphoresis Treatment prior to arrival: oxygen Related Data Home Medications Medication Instructions Recorded Confirmed Yupelri 175 mcg INHALATION DAILY 10/31/19 11/17/19 albuterol sulfate 2.5 mg INHALATION DAILY PRN 10/31/19 11/17/19 albuterol sulfate [ProAir HFA] 90 mcg INHALATION DAILY PRN 10/31/19 11/17/19 budesonide 0.5 mg/2 mL suspension 0.5 mg INHALATION BID ml 11/17/19 11/17/19 for nebulization Allergies Allergy/AdvReac Type Severity Reaction Status Date / Time Penicillins Allergy Unknown Hives Verified 12/21/19 18:27 Review of Systems Review of Systems: All systems reviewed & are unremarkable except as noted in HPI and below Constitutional: Constitutional: Reports fever(s) ENT: Denies otalgia and Denies sore throat Cardiovascular: Cardiovascular: Reports other (Diaphoresis) Respiratory: Respiratory: Reports dyspnea PMFSH Past Medical History Medical History Anemia Angina at rest Asthma Bronchitis COPD (chronic obstructive pulmonary disease) Kidney stone Lung nodule On home oxygen therapy 2L at rest, 3L with activity Post-menopausal Pulmonary embolism Pulmonary hypertension Seizure Surgical History Surgical History H/O section H/O tubal ligation History of right oophorectomy Hx of tonsillectomy Family History Family History Grandparent Family history of cardiovascular disease Hypertension Mother Family history of cardiovascular disease Family history of elevated blood lipids Social History Social History (Updated 12/21/19 @ 16:30 by Juanita Stokes) Smoking packs per day: 0.35 Smoking cigarettes per day: 7.0 Years smoked: 35 Smoking pack-years: 12.25 Tobacco type: cigarettes Second hand tobacco smoke exposure: Yes Alcohol intake: never Substance use: never Spiritual care concerns: No Agree to blood products: Yes Exam Narrative: Exam Narrative: General appearance: Well-developed, well-nourished, labored breathing, at the bedside Skin: Normal color Head: Normocephalic, nontraumatic Eyes: Clear conjunctiva ENT: Oropharynx normal, ears normal, nose normal Neck: Supple, nontender Chest and respiratory: Airway patent, mild respiratory distress, diminution of air entry bilaterally, no rhonchi or wheezing, patient on nasal cannula 3 L. Heart: Regular rate/rhythm, tachyarrhythmia Abdomen: Soft, nontender, no organomegaly, quiet bowel sounds Vascular: Normal peripheral pulses, normal capillary refill. 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
--- NOTE | 2019-12-21 16:27 | ECG_ITS ---
Measurements Intervals Douglas Rate: 136 P: 77 AR: 148 QRS: 104 QRSD: 85 T: 47 QT: 262 QTc: 395 Interpretive Statements SINUS TACHYCARDIA RIGHT AXIS DEVIATION MINIMAL Q WAVES- INFERIOR LEADS BORDERLINE T WAVE ABNORMALITY- INFERIOR LEADS BASELINE ARTIFACT- I, II, III, AVR, AVL, AVF, V1-V4 ATYPICAL ECG Electronically Signed On 12-22-2019 6:57:53 CDT by Fitz Green D.O.
[2019-12-21] MEDS: methylPREDNISolone SOD SUCC 125 MG VIAL IV PUSH (16:34)
[2019-12-21] MEDS: ALBUTEROL SULFATE NEB 2.5 MG/0.5 ML INH 5 MG INHALATION (16:42)
[2019-12-21] MEDS: IPRATROPIUM BR 0.02% INH SOLN 0.5 MG/2.5 ML VIAL INHALATION ×2 (16:42→21:26)
[2019-12-21 16:44] LABS: Alveolar/Arterial O2 Gradient 85.5 mmHg; Base Excess ABG 12.8 mEq/l (+/-2.0); Fractional Inspired Oxygen 40 %; HCO3 ABG 44.9 mEq/l (22.0-26.0); Oxygen Content ABG 16.5 %vol (16.0-22.0); Oxygen Saturation ABG 90.3 % (95.0-100.0); Oxyhemoglobin 90.1 % THb (90.0-100.0); PO2 ABG 73.2 mmHg (80.0-100.0); PO2 FiO2 Ratio Arterial Blood 1.83 %
[2019-12-21 16:45] LABS: pH ABG 7.229 (7.350-7.450)
[2019-12-21 16:46] LABS: Device NON-INVASIVE VENT; Modified Allen's Test Pass; Non-Invasive Expiratory Pressure 6 CMH2O; Non-Invasive Inspiratory Pressure 12 CMH2O; Non-Invasive Vent Rate 4 /MIN; Site Drawn RIGHT RADIAL
[2019-12-21 16:47] LABS: Basophils Absolute Auto 0.1 K/mm3 (0.0-0.1); Basophils Percent Auto 0.3 % (0.2-1.2); Eosinophils Absolute Auto 0.2 K/mm3 (0-0.3); Eosinophils Percent Auto 0.8 % (0-4.4); Hematocrit 41.2 % (37.0-47.0); Hemoglobin 12.1 g/dL (12.0-15.0); Immature Granulocyte Absolute 0.13 K/mm3 (0.00-0.031); Immature Granulocyte Percent A 0.7 % (0-0.5); Lymphocytes Absolute Auto 3.06 K/mm3 (0.9-3.2); Lymphocytes Percent Auto 15.8 % (18.3-44.2); Mean Corpuscular HGB Conc 29.4 g/dl (32-36); Mean Corpuscular Hemoglobin 28.8 pg (26-34); Mean Corpuscular Volume 98.1 fl (80-100); Mean Platelet Volume 9.9 fl (7.4-10.4); Monocytes Absolute Auto 1.6 K/mm3 (0.1-0.6); Monocytes Percent Auto 8.3 % (2.6-8.5); Neutrophils Absolute Auto 14.4 K/mm3 (1.3-6.7); Neutrophils Percent Auto 74.1 % (45.5-73.1); Platelet Count Result 244 k/mm3 (150-375); White Blood Count 19.4 K/mm3 (4.5-10.0)
[2019-12-21 16:52] LABS: Prothrombin Time 13.1 Seconds (11.1-14.7)
[2019-12-21 16:53] LABS: Partial Thromboplastin Time 32.7 SECONDS (22.3-36.8)
[2019-12-21 16:57] LABS: Alanine Aminotransferase 13 U/L (4-35); Albumin Level 4.2 g/dL (3.5-5.1); Alkaline Phosphatase 88 U/L (38-126); Aspartate Amino Transferase 22 U/L (14-36); Bilirubin,Total 0.3 mg/dL (0.2-1.3); Blood Urea Nitrogen 10 mg/dL (7-17); Calcium 9.1 mg/dL (8.4-10.2); Carbon Dioxide > 40 mmol/L (22-30); Chloride 92 mmol/L (98-107); Estimated CRCL calculation 119 ml/min; Estimated Glomerular Filt Rate > 60; Glucose 140 mg/dL (65-105); Magnesium 2.1 mg/dL (1.6-2.3); Potassium 4.2 mmol/L (3.4-5.0); Sodium 142 mmol/L (137-145)
[2019-12-21 17:04] LABS: Estimated CRCL calculation 83 ml/min; Estimated Glomerular Filt Rate > 60
[2019-12-21 17:07] LABS: NT Pro B Type Natriuretic Pept 111 PG/ML (5-100); Platelet Estimate Adequate (Adequate); Troponin I < 0.012 ng/mL (0.000-0.034)
[2019-12-21 17:08] LABS: Hypochromasia 1+ (NORMAL)
[2019-12-21] MEDS: ENOXAPARIN 80 MG/0.8 ML SYRINGE 70 MG SUB-Q (18:19)
--- NOTE | 2019-12-21 19:20 | PM.IMHP ---
H&P: HPI History of Present Illness Chief complaint: Acute on chronic hypercapnic respiratory failure, Narrative: This is a 54 year old female with known chronic respiratory failure on 2.5 L of oxygen at home at all times and COPD who was just recently admitted to our hospitalist service at the end of October of this year for acute respiratory failure and returned to the hospital [facility] with a complaint of worsening exertional shortness of breath over the past 3 days. The patient is supposed to be on Eliquis after being diagnosed with acute pulmonary emboli on her last hospitalization but she reports that she has not had any Eliquis for over a week because her insurance company would not authorize the medication for her. She denies any worsening LE swelling, pain or redness. She also reports a productive cough of darkish sputum and believes she might have had a fever a few days ago but hasn't had any since. Associated symptoms have included sore throat, nausea, diaphoresis and generalized weakness. The patient was evaluated in the ER [facility] and found to be in acute hypercapnic respiratory failure with a pCO2 of 110. CTA Chest demonstrated Patchy bilateral airspace opacities and left lower lobe pulmonary emboli. Review of Systems Review of Systems: All systems reviewed & are unremarkable except as noted in HPI and below PMFSH Past Medical History Medical History Anemia Angina at rest Asthma Bronchitis COPD (chronic obstructive pulmonary disease) Kidney stone Lung nodule On home oxygen therapy 2L at rest, 3L with activity Post-menopausal Pulmonary embolism Pulmonary hypertension Seizure Surgical History Surgical History H/O section H/O tubal ligation History of right oophorectomy Hx of tonsillectomy Family History Family History Grandparent Family history of cardiovascular disease Hypertension Mother Family history of cardiovascular disease Family history of elevated blood lipids Social History Social History Smoking packs per day: 1 Smoking cigarettes per day: 20.0 Years smoked: 35 Smoking pack-years: 35.00 Smoking status: Current every day smoker Tobacco type: cigarettes Second hand tobacco smoke exposure: Yes Alcohol intake: never Substance use: never Substance use type: does not use Spiritual care concerns: No Agree to blood products: Yes Meds Home Medications and Allergies Home Medications Medication Instructions Recorded Confirmed Type Yupelri 175 mcg INHALATION DAILY 10/31/19 12/21/19 History albuterol sulfate 2.5 mg INHALATION DAILY PRN 10/31/19 12/21/19 History albuterol sulfate [ProAir HFA] 90 mcg INHALATION DAILY PRN 10/31/19 12/21/19 History budesonide 0.5 mg/2 mL suspension 0.5 mg INHALATION BID ml 11/17/19 12/21/19 History for nebulization formoterol fumarate 20 mcg/2 mL 2 ml INHALATION BID #180 ml 11/17/19 12/21/19 Rx solution for nebulization apixaban 5 mg tablet 5 mg PO BID #180 tablet 11/18/19 12/21/19 Rx Allergies Allergy/AdvReac Type Severity Reaction Status Date / Time Penicillins Allergy Unknown Hives Verified 12/21/19 18:27 Vital Signs Vital Signs - 24 hr 12/21/19 16:15 12/21/19 16:36 12/21/19 16:37 Temperature 37.1 C Pulse Rate 142 H 140 H Respiratory Rate 23 H Blood Pressure 121/66 Pulse Oximetry 98 92 12/21/19 16:43 12/21/19 16:50 12/21/19 17:22 Temperature Pulse Rate 124 H 132 H 120 H Respiratory Rate 35 H 38 H 36 H Blood Pressure Pulse Oximetry 96 97 96 12/21/19 18:19 12/21/19 19:07 12/21/19 19:18 Temperature Pulse Rate 137 H 125 H 120 H Respiratory Rate 26 H 24 H 19 Blood Pressure 98/67 L 100/60 103/64 Pulse Oximetry 96 97 97 Exam Const: General: cooperative,
[2019-12-21 20:14] LABS: Lactic Acid Reflex 0.7 mmol/L (0.7-2.1)
--- NOTE | 2019-12-21 20:37 | ADMGEN ---
This patient, Jaclyn Kessler, was admitted to IMU Room 212-01. Patient/family oriented to hospital policies and general routines including ID bracelet, bed and alarms, visiting hours, pain management, procedures, bathroom and other care routines, personal items, smoking policy, room service/diet, and visiting hours. Valuables list has been completed. Information on how to activate the Rapid Response Team has been discussed. Patient/Family are encouraged to report perceived risks to care and to ask questions if they do not understand what they are told or what they should do.
[2019-12-21] MEDS: SODIUM CHLORIDE 0.9% IV 1,000 ML 100 ML IV CONT (20:45)
[2019-12-21 21:42] LABS: Alveolar/Arterial O2 Gradient 100.1 mmHg; Base Excess ABG 7.9 mEq/l (+/-2.0); Fractional Inspired Oxygen 40 %; HCO3 ABG 38.7 mEq/l (22.0-26.0); Oxygen Content ABG 16.1 %vol (16.0-22.0); Oxygen Saturation ABG 91.5 % (95.0-100.0); Oxyhemoglobin 92.2 % THb (90.0-100.0); PO2 ABG 75.9 mmHg (80.0-100.0); Total Hemoglobin 12.4 g/dL (12.0-18.0)
[2019-12-21 21:43] LABS: pH ABG 7.228 (7.350-7.450)
[2019-12-21 21:44] LABS: Device NON-INVASIVE VENT; Modified Allen's Test Pass; Non-Invasive Expiratory Pressure 6 CMH2O; Non-Invasive Inspiratory Pressure 14 CMH2O; Non-Invasive Vent Rate 14 /MIN; Site Drawn RIGHT RADIAL
[2019-12-22] VITALS (28 sets, daily range): BP systolic 99–125; BP diastolic 52–66; PULSE 75–118; RESP 14–28; TEMP 36.2–36.8; O2SAT 92–100
[2019-12-22] MEDS: methylPREDNISolone SOD SUCC 125 MG VIAL 60 MG IV PUSH ×3 (00:02→12:06)
[2019-12-22 00:52] LABS: Alveolar/Arterial O2 Gradient 77.1 mmHg; Base Excess ABG 10.7 mEq/l (+/-2.0); Fractional Inspired Oxygen 40 %; Oxygen Content ABG 16.4 %vol (16.0-22.0); Oxygen Saturation ABG 96.5 % (95.0-100.0); Oxyhemoglobin 95.3 % THb (90.0-100.0); PO2 ABG 102.4 mmHg (80.0-100.0); PO2 FiO2 Ratio Arterial Blood 2.56 %; Total Hemoglobin 12.1 g/dL (12.0-18.0)
[2019-12-22 00:53] LABS: Device NON-INVASIVE VENT; Modified Allen's Test Pass; Non-Invasive Expiratory Pressure 8 CMH2O; Non-Invasive Inspiratory Pressure 20 CMH2O; Non-Invasive Vent Rate 20 /MIN; PCO2 ABG 91.9 mmHg (35.0-45.0); Site Drawn LEFT RADIAL; pH ABG 7.267 (7.350-7.450)
[2019-12-22] MEDS: IPRATROPIUM BR 0.02% INH SOLN 0.5 MG/2.5 ML VIAL INHALATION ×4 (03:56→21:48)
[2019-12-22 04:55] LABS: Basophils Percent Auto 0.3 % (0.2-1.2); Hematocrit 36.6 % (37.0-47.0); Hemoglobin 10.7 g/dL (12.0-15.0); Immature Granulocyte Absolute 0.12 K/mm3 (0.00-0.031); Immature Granulocyte Percent A 0.8 % (0-0.5); Lymphocytes Absolute Auto 1.01 K/mm3 (0.9-3.2); Lymphocytes Percent Auto 6.8 % (18.3-44.2); Mean Corpuscular HGB Conc 29.2 g/dl (32-36); Mean Corpuscular Hemoglobin 28.6 pg (26-34); Mean Corpuscular Volume 97.9 fl (80-100); Mean Platelet Volume 10.1 fl (7.4-10.4); Monocytes Absolute Auto 0.1 K/mm3 (0.1-0.6); Monocytes Percent Auto 0.7 % (2.6-8.5); Neutrophils Absolute Auto 13.5 K/mm3 (1.3-6.7); Neutrophils Percent Auto 91.4 % (45.5-73.1); Platelet Count Result 204 k/mm3 (150-375); Red Blood Count 3.74 M/mm3 (4.2-5.4); Red Cell Distribution Width 12.9 % (11.5-14.5); White Blood Count 14.8 K/mm3 (4.5-10.0)
[2019-12-22 05:08] LABS: Blood Urea Nitrogen 9 mg/dL (7-17); Calcium 8.7 mg/dL (8.4-10.2); Carbon Dioxide 39 mmol/L (22-30); Chloride 92 mmol/L (98-107); Estimated CRCL calculation 155 ml/min; Estimated Glomerular Filt Rate > 60; Glucose 117 mg/dL (65-105); Potassium 4.5 mmol/L (3.4-5.0); Sodium 135 mmol/L (137-145)
[2019-12-22 06:15] LABS: Alveolar/Arterial O2 Gradient 85.1 mmHg; Fractional Inspired Oxygen 35 %; HCO3 ABG 41.2 mEq/l (22.0-26.0); Oxygen Content ABG 14.8 %vol (16.0-22.0); Oxygen Saturation ABG 90.8 % (95.0-100.0); Oxyhemoglobin 92.8 % THb (90.0-100.0); PO2 ABG 67.8 mmHg (80.0-100.0); PO2 FiO2 Ratio Arterial Blood 1.94 %; Total Hemoglobin 11.3 g/dL (12.0-18.0); pH ABG 7.313 (7.350-7.450)
[2019-12-22 06:17] LABS: Device NON-INVASIVE VENT; Modified Allen's Test Pass; PCO2 ABG 83.1 mmHg (35.0-45.0); Site Drawn LEFT RADIAL
[2019-12-22 06:18] LABS: Non-Invasive Expiratory Pressure 8 CMH2O; Non-Invasive Inspiratory Pressure 20 CMH2O; Non-Invasive Vent Rate 20 /MIN
[2019-12-22] MEDS: SODIUM CHLORIDE 0.9% IV 1,000 ML 100 ML IV CONT ×2 (06:40→16:54)
[2019-12-22] MEDS: ENOXAPARIN 80 MG/0.8 ML SYRINGE 70 MG SUB-Q ×2 (06:41→16:56)
[2019-12-22 06:47] LABS: Hypochromasia 1+ (NORMAL); Platelet Estimate Adequate (Adequate); Poikilocytosis 1+ (NORMAL); Stomatocytes 1+ (NORMAL)
--- NOTE | 2019-12-22 14:55 | PM.CNPUL ---
Assessment and Plan Assessment and plan (1) Acute and chronic respiratory failure with hypercapnia: Code(s): J96.22 - Acute and chronic respiratory failure with hypercapnia Status: Acute Assessment and Plan: -change BIPAP to 20/4 with backup rate of 14, FiO2 30% -if home Trilogy NIV is available that would be preferable. 4 liter of oxygen with her Triology machine is required. (2) Acute bronchitis with COPD: Code(s): J44.0 - Chronic obstructive pulmonary disease with (acute) lower respiratory infection; J20.9 - Acute bronchitis, unspecified Status: Acute Assessment and Plan: - agree with Levaquin. would decrease dose to 500 mg daily as I see no convincing evidence of pneumonia. - sputum culture will be ordered. - encouraged to quit smoking - she agreed to nicotine patch 7 mg daily History of Present Illness History of Present Illness Consult date: 12/22/19 Chief complaint: Acute on chronic hypercapnic respiratory failure, Narrative: 54 y/o male with severe COPD on home O2 who continues to smoke presents with cough productive of green sputum and increased dyspnea for the past 4-5 days. She was lethargic with acute on chronic hypercapnic respiratory failure. Which is now normalizing. Most recent ABG is 7.31/83/67 which is probably close to her baseline. She is fully awake and alert and asked for BIPAP to come off. She is feeling better. I reiviwed her CT chest myself and it looks no different than her CT chest from Oct 2019. I see no convincing evidence of pneumonia. Review of Systems Review of Systems: All systems reviewed & are unremarkable except as noted in HPI and below PMFSH Past Medical History Medical History Anemia Angina at rest Asthma Bronchitis COPD (chronic obstructive pulmonary disease) Kidney stone Lung nodule On home oxygen therapy 2L at rest, 3L with activity Post-menopausal Pulmonary embolism Pulmonary hypertension Seizure Surgical History Surgical History H/O section H/O tubal ligation History of right oophorectomy Hx of tonsillectomy Family History Family History Grandparent Family history of cardiovascular disease Hypertension Mother Family history of cardiovascular disease Family history of elevated blood lipids Social History Social History Smoking packs per day: 1 Smoking cigarettes per day: 20.0 Years smoked: 35 Smoking pack-years: 35.00 Smoking status: Current every day smoker Tobacco type: cigarettes Second hand tobacco smoke exposure: Yes Alcohol intake: never Substance use: never Substance use type: does not use Spiritual care concerns: No Agree to blood products: Yes Meds Home Medications and Allergies Home Medications Medication Instructions Recorded Confirmed Type Yupelri 175 mcg INHALATION DAILY 10/31/19 12/21/19 History albuterol sulfate 2.5 mg INHALATION DAILY PRN 10/31/19 12/21/19 History albuterol sulfate [ProAir HFA] 90 mcg INHALATION DAILY PRN 10/31/19 12/21/19 History budesonide 0.5 mg/2 mL suspension 0.5 mg INHALATION BID ml 11/17/19 12/21/19 History for nebulization formoterol fumarate 20 mcg/2 mL 2 ml INHALATION BID #180 ml 11/17/19 12/21/19 Rx solution for nebulization apixaban 5 mg tablet 5 mg PO BID #180 tablet 11/18/19 12/21/19 Rx Allergies Allergy/AdvReac Type Severity Reaction Status Date / Time Penicillins Allergy Unknown Hives Verified 12/21/19 18:27 Vital Signs Vital Signs - 24 hr 12/21/19 16:15 12/21/19 16:36 12/21/19 16:37 Temperature 37.1 C Pulse Rate 142 H 140 H Respiratory Rate 23 H Blood Pressure 121/66 Pulse Oximetry 98 92 12/21/19 16:43 12/21/19 16:50 12/21/19 17:22 Temperature Pulse Rate 124 H 132 H 120 H Respira
--- NOTE | 2019-12-22 16:23 | PM.IMPN ---
Progress Note: A&P Assessment and Plan (1) Acute respiratory failure with hypercapnia: Code(s): J96.02 - Acute respiratory failure with hypercapnia Status: Acute Assessment and Plan: , Continue Bipap support and if brings in trilogy unit from home will use it this hs.. . Continue to treat presumed pneumonia. Oxygen supplementation. RT assess and treat. (2) Pneumonia: Qualifiers: Laterality: bilateral Lung location: lower lobe of lung Pneumonia type: due to unspecified organism Qualified Code(s): J18.9 - Pneumonia, unspecified organism Code(s): J18.9 - Pneumonia, unspecified organism Status: Acute Assessment and Plan: Continue IV antibiotics that were started in the ER. Continue bronchodilators. Blood and sputum cultures are pending as are urine pnemococcal and legionella. Continue supplemental oxygen to maintain pulse ox >90%. Pulmonary reviewed old CT scans as and do not feel there are any new infiltrates so will probably not need long-term antibiotics (3) Chronic hypercapnic respiratory failure: Code(s): J96.12 - Chronic respiratory failure with hypercapnia Status: Chronic Assessment and Plan: Continue supplemental oxygen. (4) COPD (chronic obstructive pulmonary disease): Qualifiers: COPD type: unspecified COPD Qualified Code(s): J44.9 - Chronic obstructive pulmonary disease, unspecified Code(s): J44.9 - Chronic obstructive pulmonary disease, unspecified Status: Chronic Assessment and Plan: continue bronchodilators. And steroids which have been decreased by Pulmonary to just 20 mg daily (5) Pulmonary embolism: Qualifiers: Acute cor pulmonale presence: unspecified Chronicity: unspecified Pulmonary embolism type: unspecified Qualified Code(s): I26.99 - Other pulmonary embolism without acute cor pulmonale Code(s): I26.99 - Other pulmonary embolism without acute cor pulmonale Status: Chronic Assessment and Plan: Continue therapeutic Lovenox. And transition to hopefully Xa inhibitor again before discharge but will have to have care coordination see if can be approved (6) Nonadherence to medical treatment: Code(s): Z91.19 - Patient's noncompliance with other medical treatment and regimen Status: Acute Assessment and Plan: The patient has not been taking her Eliquis because she couldn't get her insurance company to approve it. May need to transition to warfarin (7) Tobacco dependence: Code(s): F17.200 - Nicotine dependence, unspecified, uncomplicated Status: Chronic Assessment and Plan: Dr Diane counseled the patient on tobacco cessation for 4 minutes. The patient does desire a nicotine patch. Subjective Date/time seen: 12/22/19 16:23 Interval history: Date of visit 12/21. 54-year-old white female with history of pulmonary emboli not taking her anticoagulant and chronic respiratory failure presented with increasing shortness of breath. CTA revealed emboli which is probably the same emboli she had had prior. Also revealed patchy infiltrates. She was retaining CO2 above 100 and was placed on BiPAP. CT was read is infiltrates as stated and thus antibiotics were started also. Feels better this a.m. Exam Narrative: Exam Narrative: Blood pressure 124/60 pulse is 86 sat 93% now on 3 L Pupils equal reactive light sclera anicteric Lungs prolonged expiratory phase, no definite infiltrate or crackles distant breath sounds CV no murmurs or gallops Abdomen is soft nontender Extremities without edema good distal pulses Neuro alert cooperative Objective Data Vital Signs Vital Signs: Vital Signs - 24 hr 12/21/19 16:36 12/21/19 16:37 12/21/19 16:43 Temperature Pulse Rate 140 H 124 H Respiratory Rate 35 H Blood Pressure Pulse Oximetry 92 96 12/21/19 16:50 12/21/19 17:22 12/21/19 18:19 Temperature Pulse Rate 132 H 120 H 137 H Respirator
[2019-12-23] VITALS (24 sets, daily range): BP systolic 114–139; BP diastolic 54–74; PULSE 68–127; RESP 18–24; TEMP 36.3–36.7; O2SAT 93–97
[2019-12-23] MEDS: IPRATROPIUM BR 0.02% INH SOLN 0.5 MG/2.5 ML VIAL INHALATION ×4 (01:20→20:15)
[2019-12-23] MEDS: SODIUM CHLORIDE 0.9% IV 1,000 ML 100 ML IV CONT (03:53)
[2019-12-23] MEDS: ENOXAPARIN 80 MG/0.8 ML SYRINGE 70 MG SUB-Q (05:22)
--- NOTE | 2019-12-23 08:02 | PM.IMPN ---
Progress Note: A&P Assessment and Plan (1) Acute respiratory failure with hypercapnia: Code(s): J96.02 - Acute respiratory failure with hypercapnia Status: Acute Assessment and Plan: , Continue Bipap support and if brings in trilogy unit from home will use it this hs.. . Continue to treat presumed pneumonia. Oxygen supplementation. RT assess and treat. (2) Pneumonia: Qualifiers: Laterality: bilateral Lung location: lower lobe of lung Pneumonia type: due to unspecified organism Qualified Code(s): J18.9 - Pneumonia, unspecified organism Code(s): J18.9 - Pneumonia, unspecified organism Status: Acute Assessment and Plan: Continue IV levofloxacin started in the ER. Continue bronchodilators. Blood and sputum cultures are pending as are urine pnemococcal and legionella. Continue supplemental oxygen to maintain pulse ox >90%. Pulmonary reviewed old CT scans as and do not feel there are any new infiltrates so will probably not need long-term antibiotics (3) Chronic hypercapnic respiratory failure: Code(s): J96.12 - Chronic respiratory failure with hypercapnia Status: Chronic Assessment and Plan: Continue supplemental oxygen. (4) COPD (chronic obstructive pulmonary disease): Qualifiers: COPD type: unspecified COPD Qualified Code(s): J44.9 - Chronic obstructive pulmonary disease, unspecified Code(s): J44.9 - Chronic obstructive pulmonary disease, unspecified Status: Chronic Assessment and Plan: continue bronchodilators and steroids (5) Pulmonary embolism: Qualifiers: Acute cor pulmonale presence: unspecified Chronicity: unspecified Pulmonary embolism type: unspecified Qualified Code(s): I26.99 - Other pulmonary embolism without acute cor pulmonale Code(s): I26.99 - Other pulmonary embolism without acute cor pulmonale Status: Chronic Assessment and Plan: 12/22 transition from enoxaparin to apixaban 10mg bid through 12/27, then 5mg bid [employer] CC working on PA (6) Nonadherence to medical treatment: Code(s): Z91.19 - Patient's noncompliance with other medical treatment and regimen Status: Acute Assessment and Plan: The patient has not been taking her Eliquis because she couldn't get her insurance company to approve it. CC working on PA. (7) Tobacco dependence: Code(s): F17.200 - Nicotine dependence, unspecified, uncomplicated Status: Chronic Assessment and Plan: Aware of need to quit. Nicotine patch. Subjective Date/time seen: 12/23/19 08:02 Interval history: 54-year-old white female with history of pulmonary emboli not taking her anticoagulant and chronic respiratory failure presented with increasing shortness of breath. CTA revealed emboli which is probably the same emboli she had had prior. Also revealed patchy infiltrates. She was retaining CO2 above 100 and was placed on BiPAP. CT was read is infiltrates as stated and thus antibiotics were started also. Feeling much better. Tolerating diet. Denied pain or bleeding. Constipated, but no other c/o. Review of Systems Review of Systems: All systems reviewed & are unremarkable except as noted in HPI and below Exam Narrative: Exam Narrative: Pupils equal reactive light, sclera anicteric Lungs prolonged expiratory phase, no crackles or wheezes, distant breath sounds CV no murmurs or gallops Abdomen is soft nontender, NL BS Extremities without edema good distal pulses Neuro alert cooperative Objective Data Vital Signs Vital Signs: Vital Signs - 24 hr 12/22/19 08:42 12/22/19 08:44 12/22/19 08:47 Temperature 97.1 F L Pulse Rate 75 96 78 Respiratory Rate 21 H 28 H 28 H Blood Pressure 99/52 L Pulse Oximetry 98 99 12/22/19 08:54 12/22/19 10:00 12/22/19 12:00 Temperature Pulse Rate 87 87 96 Respiratory Rate 26 H Blood Pressure Pulse Oximetry 12/22/19 12:24
[2019-12-23] MEDS: methylPREDNISolone SOD SUCC 40 MG VIAL 20 MG IV PUSH (10:26)
[2019-12-23] MEDS: NICOTINE (*PBKC) 7 MG PATCH 1 PATCH TRANSDERM (10:26)
--- NOTE | 2019-12-23 15:57 | PM.PNPUL ---
Progress Note: A&P Assessment and Plan (1) Acute bronchitis with COPD: Code(s): J44.0 - Chronic obstructive pulmonary disease with (acute) lower respiratory infection; J20.9 - Acute bronchitis, unspecified Status: Acute Assessment and Plan: - agree with Levaquin. would decrease dose to 500 mg daily as I see no convincing evidence of pneumonia. - sputum culture will be ordered. - encouraged to quit smoking - she agreed to nicotine patch 7 mg daily (2) Acute and chronic respiratory failure with hypercapnia: Code(s): J96.22 - Acute and chronic respiratory failure with hypercapnia Status: Acute Assessment and Plan: Doing well back on her home Trilogy settings with 3 liters oxygen. Time Spent With Patient Time with patient: 15 - 25 minutes Subjective Date/time seen: 12/23/19 15:57 Interval history: Feeling slightly better but does have episoded of acute dyspnea. Productive cough is improving. She tolerated her Trilogy NIV last night with 3 liters of O2 and sats mainted above 93%. No ABG was done this morning Review of Systems Review of Systems: All systems reviewed & are unremarkable except as noted in HPI and below Exam Const: General: comfortable and no acute distress HENMT: Mouth: Yes moist mucous membranes Neck: Neck: supple and no JVD Resp: Auscultation: no crackles, no rales, no rhonchi, no wheezes and diminished lung sounds Cardio: Rate: regular rate Rhythm: regular rhythm Heart sounds: no gallops and no murmurs GI: GI Palp: Yes Soft to palpation Auscultation: normal bowel sounds Skin: General skin exam: normal color and no rashes or lesions noted Neuro: Speech: normal speech Motor exam (neuro): Normal motor muscle tone present throughout Extrem: General: normal to inspection, no edema and no pedal edema Psych: Mental Status: mental status grossly normal Affect: Anxious affect present Objective Data Vital Signs Vital Signs: Vital Signs - 24 hr 12/22/19 16:00 12/22/19 18:00 12/22/19 19:41 Temperature 36.8 C 36.6 C Pulse Rate 118 H 115 H 106 H Respiratory Rate 14 14 Blood Pressure 125/60 110/66 Pulse Oximetry 93 98 12/22/19 20:00 12/22/19 21:49 12/22/19 21:50 Temperature Pulse Rate 79 78 Respiratory Rate 18 Blood Pressure Pulse Oximetry 93 12/22/19 22:00 12/22/19 23:44 12/23/19 00:00 Temperature 36.6 C Pulse Rate 78 116 H 76 Respiratory Rate 18 20 Blood Pressure 106/56 L Pulse Oximetry 97 12/23/19 01:20 12/23/19 01:30 12/23/19 02:00 Temperature Pulse Rate 80 80 82 Respiratory Rate 18 18 Blood Pressure Pulse Oximetry 12/23/19 04:00 12/23/19 06:00 12/23/19 08:00 Temperature 36.6 C Pulse Rate 97 82 127 H Respiratory Rate 20 Blood Pressure 139/67 Pulse Oximetry 97 12/23/19 08:31 12/23/19 10:00 12/23/19 10:26 Temperature 36.5 C Pulse Rate 100 108 H 112 H Respiratory Rate 22 H 20 Blood Pressure 127/71 Pulse Oximetry 96 12/23/19 10:29 12/23/19 10:34 12/23/19 12:00 Temperature 36.3 C L Pulse Rate 114 H 108 H Respiratory Rate 20 20 Blood Pressure 127/74 Pulse Oximetry 93 94 12/23/19 14:00 12/23/19 15:00 12/23/19 15:08 Temperature Pulse Rate 107 H 107 H 106 H Respiratory Rate 20 20 Blood Pressure Pulse Oximetry Intake/Output Intake/Output: Intake & Output 12/20/19 12/21/19 12/22/19 12/23/19 23:59 23:59 23:59 23:59 Intake Total 2540 2230 Output Total 1000 1050 Balance 1540 1180 Meds/Results Medications: Active Medications Generic Name Dose Route Start Last Admin Trade Name Freq PRN Reason Stop Dose Admin Acetaminophen 650 mg 12/21/19 19:37 Tylenol Tablet PO Q4H PRN Mild Pain (1-3) or Fever Al Hydrox/Mg Hydrox/Simethicone 30 ml 12/21/19 19:38 Mylanta PO QID PRN Dyspepsia Apixaban 10 mg 12/23/19 21:00 Eliquis PO Q12HR [facility] Levofloxacin/Dextrose 750 mg in 150 mls @ 100 mls/hr
[2019-12-23 15:58] LABS: Legionella pneumophila Ag Ur Not Detected (Not Detected)
[2019-12-23] MEDS: APIXABAN 5 MG TABLET 10 MG PO (21:30)
[2019-12-24] VITALS (22 sets, daily range): BP systolic 118–145; BP diastolic 51–86; PULSE 75–118; RESP 20–28; TEMP 36.3–36.7; O2SAT 91–98
[2019-12-24 00:17] LABS: Pneumococcal Antigen Urine Not Detected (Not Detected)
[2019-12-24] MEDS: IPRATROPIUM BR 0.02% INH SOLN 0.5 MG/2.5 ML VIAL INHALATION ×4 (01:25→20:42)
--- NOTE | 2019-12-24 02:20 | PCRCNOTE ---
Pt refused 0500 ABG. Pt states she wants to speak to her pulmonary Dr. morales.
[2019-12-24 05:16] LABS: Hemoglobin 10.1 g/dL (12.0-15.0); Mean Corpuscular HGB Conc 29.7 g/dl (32-36); Mean Corpuscular Hemoglobin 28.9 pg (26-34); Mean Corpuscular Volume 97.1 fl (80-100); Platelet Count Result 242 k/mm3 (150-375); White Blood Count 10.8 K/mm3 (4.5-10.0)
[2019-12-24 06:09] LABS: Blood Urea Nitrogen 11 mg/dL (7-17); Calcium 8.4 mg/dL (8.4-10.2); Carbon Dioxide > 40 mmol/L (22-30); Chloride 95 mmol/L (98-107); Estimated CRCL calculation 124 ml/min; Estimated Glomerular Filt Rate > 60; Glucose 107 mg/dL (65-105); Potassium 3.2 mmol/L (3.4-5.0); Sodium 137 mmol/L (137-145)
--- NOTE | 2019-12-24 07:53 | PM.IMPN ---
Subjective Date/time seen: 12/24/19 07:53 Interval history: Feeling slightly better but does have episoded of acute dyspnea. Productive cough is improving. She tolerated her Trilogy NIV last night with 3 liters of O2 and sats mainted above 93%. No ABG was done this morning Review of Systems Review of Systems: All systems reviewed & are unremarkable except as noted in HPI and below Exam Narrative: Exam Narrative: Pupils equal reactive light, sclera anicteric Lungs prolonged expiratory phase, no crackles or wheezes, distant breath sounds CV no murmurs or gallops Abdomen is soft nontender, NL BS Extremities without edema good distal pulses Neuro alert cooperative Objective Data Vital Signs Vital Signs: Vital Signs - 24 hr 12/23/19 08:00 12/23/19 08:31 12/23/19 10:00 Temperature 97.7 F Pulse Rate 127 H 100 108 H Respiratory Rate 22 H Blood Pressure 127/71 Pulse Oximetry 96 12/23/19 10:26 12/23/19 10:29 12/23/19 10:34 Temperature Pulse Rate 112 H 114 H Respiratory Rate 20 20 Blood Pressure Pulse Oximetry 93 12/23/19 12:00 12/23/19 14:00 12/23/19 15:00 Temperature 97.3 F L Pulse Rate 108 H 107 H 107 H Respiratory Rate 20 20 Blood Pressure 127/74 Pulse Oximetry 94 12/23/19 15:08 12/23/19 16:00 12/23/19 18:00 Temperature 97.7 F Pulse Rate 106 H 109 H 102 H Respiratory Rate 20 22 H Blood Pressure 114/70 Pulse Oximetry 97 12/23/19 20:00 12/23/19 20:15 12/23/19 20:26 Temperature 97.7 F Pulse Rate 88 85 85 Respiratory Rate 24 H 20 20 Blood Pressure 114/70 Pulse Oximetry 97 12/23/19 20:28 12/23/19 22:00 12/23/19 23:55 Temperature 98.0 F Pulse Rate 68 75 Respiratory Rate 20 Blood Pressure 116/54 L Pulse Oximetry 97 96 12/24/19 00:00 12/24/19 01:35 12/24/19 01:42 Temperature Pulse Rate 75 75 77 Respiratory Rate 20 20 Blood Pressure Pulse Oximetry 12/24/19 02:00 12/24/19 04:00 03/18/20 06:00 Temperature 97.9 F Pulse Rate 81 113 H 78 Respiratory Rate 20 Blood Pressure 130/64 Pulse Oximetry 92 Intake/Output Intake/Output: Intake & Output 12/21/19 12/22/19 12/23/19 12/24/19 23:59 23:59 23:59 23:59 Intake Total 2540 2620 500 Output Total 1000 1950 1200 Balance 1540 670 -700 Meds/Results Medications: Active Medications Generic Name Dose Route Start Last Admin Trade Name Freq PRN Reason Stop Dose Admin Acetaminophen 650 mg 12/21/19 19:37 Tylenol Tablet PO Q4H PRN Mild Pain (1-3) or Fever Al Hydrox/Mg Hydrox/Simethicone 30 ml 12/21/19 19:38 Mylanta PO QID PRN Dyspepsia Apixaban 10 mg 12/23/19 21:00 12/23/19 21:30 Eliquis PO 10 mg Q12HR [facility] Administration Levofloxacin/Dextrose 750 mg in 150 mls @ 100 mls/hr 12/22/19 18:00 12/23/19 19:35 Levaquin 750 Mg/D5w 150 Ml IVPB Infused Q24H [facility] Infusion Ipratropium [place] 0.5 mg 12/21/19 20:00 12/24/19 01:25 Atrovent Neb INHALATION 0.5 mg Q6HRT [facility] Administration Levalbuterol HCl 1.25 mg 12/21/19 20:00 12/24/19 01:25 Xopenex 1.25 Mg/0.5 Ml INHALATION 1.25 mg Q6HRT [facility]ONTRELL Administration Methylprednisolone Sodium Succinate 20 mg 12/23/19 09:00 12/23/19 10:26 Solu-Medrol IV PUSH 20 mg QAM DONTRELL Administration Nicotine 1 patch 12/23/19 09:00 12/23/19 10:26 Nicoderm Cq 7 Mg TRANSDERM 1 patch QAM DONTRELL Administration Potassium Chloride 40 meq 12/24/19 07:52 Kcl Tablet PO 12/24/19 07:53 ONCE ONE Radiology Results: ITS Impressions Chest CTA 12/21/19 17:14 IMPRESSION: 1. Pulmonary emboli in the left lower lobe. These findings were discussed with Dr. Mireya Cowart MD in the Emergency Department at 1740 hours on 12/21/2019. 2. Patchy bilateral airspace opacities, likely infectious or inflammatory. 3. Mild emphysema. 4. Mild bilateral hilar lymphadenopathy, likely reactive. Chest X-Ray 12/21/19 17:41 IMPRESSION: 1. Patchy bilateral
--- NOTE | 2019-12-24 08:50 | PM.DS ---
DS: Diagnosis Admitting Diagnosis Admitting Diagnosis: Acute respiratory failure with hypercapnia Discharge Diagnosis (1) Acute respiratory failure with hypercapnia: Code(s): J96.02 - Acute respiratory failure with hypercapnia Status: Acute Assessment and Plan: Continue Bipap support and if brings in trilogy unit from home will use it this hs. Continue to treat presumed pneumonia. Continue oxygen by NC during day and Trilogy at night (as she does at home). (2) Pneumonia: Qualifiers: Laterality: bilateral Lung location: lower lobe of lung Pneumonia type: due to unspecified organism Qualified Code(s): J18.9 - Pneumonia, unspecified organism Code(s): J18.9 - Pneumonia, unspecified organism Status: Acute Assessment and Plan: Continue IV levofloxacin started in the ER. Continue bronchodilators. Blood and sputum cultures are pending as are urine pnemococcal and legionella. Continue supplemental oxygen to maintain pulse ox >90%. Pulmonary reviewed old CT scans as and do not feel there are any new infiltrates so will probably not need long-term antibiotics (3) Chronic hypercapnic respiratory failure: Code(s): J96.12 - Chronic respiratory failure with hypercapnia Status: Chronic Assessment and Plan: Continue supplemental oxygen. (4) COPD (chronic obstructive pulmonary disease): Qualifiers: COPD type: unspecified COPD Qualified Code(s): J44.9 - Chronic obstructive pulmonary disease, unspecified Code(s): J44.9 - Chronic obstructive pulmonary disease, unspecified Status: Chronic Assessment and Plan: continue bronchodilators and steroids (5) Pulmonary embolism: Qualifiers: Acute cor pulmonale presence: unspecified Chronicity: unspecified Pulmonary embolism type: unspecified Qualified Code(s): I26.99 - Other pulmonary embolism without acute cor pulmonale Code(s): I26.99 - Other pulmonary embolism without acute cor pulmonale Status: Chronic Assessment and Plan: 12/22 transition from enoxaparin to apixaban 10mg bid through 12/27, then 5mg bid fdc CC working on PA (6) Nonadherence to medical treatment: Code(s): Z91.19 - Patient's noncompliance with other medical treatment and regimen Status: Acute Assessment and Plan: The patient has not been taking her Eliquis because she couldn't get her insurance company to approve it. CC working on PA. (7) Tobacco dependence: Code(s): F17.200 - Nicotine dependence, unspecified, uncomplicated Status: Chronic Assessment and Plan: Aware of need to quit. Nicotine patch. DS: Summary Hospital Course Reason for hospitalization: dyspnea and cough Hospital Course: Admitted with dyspnea and cough. No fever. Sputum purulent. Imaging revealed both pulmonary infiltrates and emboli. Treated with levofloxacin, steroids, bronchodilators, and enoxaparin. Dyspnea improved to baseline and sputum cleared. Enoxaparin was transitioned to apixaban. Care coordination obtained prior authorization for this from her insurance company. Status at Discharge Functional status at discharge: independent ambulation Overall status at discharge: patient is progressing back to baseline Time Spent with Patient Time attestation: Total time spent providing and/or coordinating discharge services:35 min Time spent: Greater than 30 minutes Exam Narrative: Exam Narrative: Pupils equal reactive light, sclera anicteric Lungs prolonged expiratory phase, no crackles or wheezes, distant breath sounds CV no murmurs or gallops Abdomen is soft nontender, NL BS Extremities without edema good distal pulses Neuro alert cooperative DS: Data Data Completed and Pending Labs on day of discharge: Labs from last 24 hours 12/24/19 12/24/19 12/22/19 04:28 04:28 00:06 WBC 10.8 H RBC 3.50 L Hgb 10.1 L Hct 34.0 L MCV 97.1 MCH 28.9 MCHC
[2019-12-24] MEDS: POTASSIUM CHLORIDE 20 MEQ TABLET 40 MEQ PO (09:51)
[2019-12-24] MEDS: NICOTINE (*PBKC) 7 MG PATCH 1 PATCH TRANSDERM (09:51)
[2019-12-24] MEDS: APIXABAN 5 MG TABLET 10 MG PO ×2 (09:51→20:22)
[2019-12-24] MEDS: methylPREDNISolone SOD SUCC 40 MG VIAL 20 MG IV PUSH (09:52)
[2019-12-24 11:40] LABS: Alveolar/Arterial O2 Gradient 103.9 mmHg; Base Excess ABG 13.8 mEq/l (+/-2.0); Fractional Inspired Oxygen 36 %; HCO3 ABG 43.1 mEq/l (22.0-26.0); Oxygen Content ABG 16.5 %vol (16.0-22.0); Oxygen Saturation ABG 87.7 % (95.0-100.0); Oxyhemoglobin 90.2 % THb (90.0-100.0); PO2 ABG 59.1 mmHg (80.0-100.0); PO2 FiO2 Ratio Arterial Blood 1.64 %; pH ABG 7.345 (7.350-7.450)
[2019-12-24 11:43] LABS: Device NASAL CANNULA; Modified Allen's Test Pass; PCO2 ABG 80.8 mmHg (35.0-45.0); Site Drawn RIGHT RADIAL
--- NOTE | 2019-12-24 11:45 | PCRTNOTE ---
STAT ABGS DONE LATE DUE TO PT EATING LUNCH.
--- NOTE | 2019-12-24 12:58 | PM.PNPUL ---
Progress Note: A&P Assessment and Plan (1) Acute bronchitis with COPD: Code(s): J44.0 - Chronic obstructive pulmonary disease with (acute) lower respiratory infection; J20.9 - Acute bronchitis, unspecified Status: Acute Assessment and Plan: CXR 12/21/19 patchy bilateral airspace opacities, likely infectious or inflammatory. Sputum showing gram + cocci and bacilli. WBC improving, now 10.8. Preliminary blood cultures negative. Urine legionella and pneumococcal antigen not detected. Continue nebulizer treatments with Xopenex and ipratropium. Consider Levaquin 500mg at discharge for 5 days. CXR in 4-6 weeks after discharge. (2) Acute and chronic respiratory failure with hypercapnia: Code(s): J96.22 - Acute and chronic respiratory failure with hypercapnia Status: Acute Assessment and Plan: ABG pCO2 80.8, slight improvement from 83.1. Was 110.0 on admission; almost at her baseline. pO2 59.1, 87.7% on 4L. Patient does have some oxygen desaturations and some exertional dyspnea. On Trilogy, now w/ 3L O2 bleed in. Agree with increase to 3L from 2L bleed in that she was on at home. Continue Trilogy at night. Continuous pulse oximetry. Monitor O2 saturations overnight and >90%. (3) Pulmonary embolism: Qualifiers: Acute cor pulmonale presence: unspecified Chronicity: unspecified Pulmonary embolism type: unspecified Qualified Code(s): I26.99 - Other pulmonary embolism without acute cor pulmonale Code(s): I26.99 - Other pulmonary embolism without acute cor pulmonale Status: Chronic Assessment and Plan: Does report some occasional chest pressure and exertional dyspnea. Tachycardic at times. Having oxygen drops. On apixaban 10mg BID. Would consider patient staying for an additional night to continue to monitor. (4) Tobacco dependence: Code(s): F17.200 - Nicotine dependence, unspecified, uncomplicated Status: Chronic Assessment and Plan: Recommend smoking cessation. Patient agrees to nicotine patches to use at home. Subjective Date/time seen: 12/24/19 12:40 Patient reports that her breathing is slowly improving but not quit to her baseline. Reports improvement in productive cough but present. Patient refused ABG this morning until we see her, then agreed to an ABG. States she did well with her Trilogy last night. is present in the room. Has anxiety about going home. Review of Systems Review of Systems: All systems reviewed & are unremarkable except as noted in HPI and below Cardiovascular: Cardiovascular: Denies chest pain and Denies chest pain at rest Comments: chest pressure Respiratory: Respiratory: Reports cough and Reports dyspnea on exertion Exam Const: General: no acute distress, alert and awake Neck: Neck: supple and no JVD Resp: Auscultation: no crackles, no rhonchi, no wheezes and diminished lung sounds bilateral Cardio: Peripheral pulses: Peripheral pulses 2+ throughout GI: Auscultation: normal bowel sounds Skin: General skin exam: normal color and no rashes or lesions noted Extrem: Right lower extremity: lower leg; no edema Left lower extremity: lower leg; no edema Other: denies bilateral calf pain Objective Data Vital Signs Vital Signs: Vital Signs - 24 hr 12/23/19 14:00 12/23/19 15:00 12/23/19 15:08 Temperature Pulse Rate 107 H 107 H 106 H Respiratory Rate 20 20 Blood Pressure Pulse Oximetry 12/23/19 16:00 12/23/19 18:00 12/23/19 20:00 Temperature 36.5 C 36.5 C Pulse Rate 109 H 102 H 88 Respiratory Rate 22 H 24 H Blood Pressure 114/70 114/70 Pulse Oximetry 97 97 12/23/19 20:15 12/23/19 20:26 12/23/19 20:28 Temperature Pulse Rate 85 85 Respiratory Rate 20 20 Blood Pressure Pulse Oximetry 97 12/23/19 22:00 12/23/19 23:55 12/24/19 00:00 Temperature 36.7 C Pulse Rate 68 75 75 Respiratory Rate 20 Blood Pressure 116/54 L Pulse Oximetry 96 12/24/19
--- NOTE | 2019-12-24 13:33 | PM.IMPN ---
Progress Note: A&P Assessment and Plan (1) Acute respiratory failure with hypercapnia: Code(s): J96.02 - Acute respiratory failure with hypercapnia Status: Acute Assessment and Plan: Continue Bipap support and if brings in trilogy unit from home will use it this hs. Continue to treat presumed pneumonia. Continue oxygen by NC during day and Trilogy at night (as she does at home). (2) Pneumonia: Qualifiers: Laterality: bilateral Lung location: lower lobe of lung Pneumonia type: due to unspecified organism Qualified Code(s): J18.9 - Pneumonia, unspecified organism Code(s): J18.9 - Pneumonia, unspecified organism Status: Acute Assessment and Plan: Continue IV levofloxacin started in the ER. Continue bronchodilators. Blood and sputum cultures are pending as are urine pnemococcal and legionella. Continue supplemental oxygen to maintain pulse ox >90%. Pulmonary reviewed old CT scans as and do not feel there are any new infiltrates so will probably not need long-term antibiotics (3) Chronic hypercapnic respiratory failure: Code(s): J96.12 - Chronic respiratory failure with hypercapnia Status: Chronic Assessment and Plan: Continue supplemental oxygen. (4) COPD (chronic obstructive pulmonary disease): Qualifiers: COPD type: unspecified COPD Qualified Code(s): J44.9 - Chronic obstructive pulmonary disease, unspecified Code(s): J44.9 - Chronic obstructive pulmonary disease, unspecified Status: Chronic Assessment and Plan: continue bronchodilators and steroids (5) Pulmonary embolism: Qualifiers: Acute cor pulmonale presence: unspecified Chronicity: unspecified Pulmonary embolism type: unspecified Qualified Code(s): I26.99 - Other pulmonary embolism without acute cor pulmonale Code(s): I26.99 - Other pulmonary embolism without acute cor pulmonale Status: Chronic Assessment and Plan: 12/22 transition from enoxaparin to apixaban 10mg bid through 12/27, then 5mg bid longterm CC obtained PA (6) Nonadherence to medical treatment: Code(s): Z91.19 - Patient's noncompliance with other medical treatment and regimen Status: Acute Assessment and Plan: The patient has not been taking her Eliquis because she couldn't get her insurance company to approve it. (7) Tobacco dependence: Code(s): F17.200 - Nicotine dependence, unspecified, uncomplicated Status: Chronic Assessment and Plan: Aware of need to quit. Nicotine patch. Subjective Date/time seen: 12/24/19 13:33 Interval history: Still with exertional dyspnea. Some chest discomfort with cough. Review of Systems Review of Systems: All systems reviewed & are unremarkable except as noted in HPI and below Exam Narrative: Exam Narrative: Exam Narrative: Pupils equal reactive light, sclera anicteric Lungs prolonged expiratory phase, no crackles or wheezes, distant breath sounds CV no murmurs or gallops Abdomen is soft nontender, NL BS Extremities without edema good distal pulses Neuro alert cooperative Objective Data Vital Signs Vital Signs: Vital Signs - 24 hr 12/23/19 14:00 12/23/19 15:00 12/23/19 15:08 Temperature Pulse Rate 107 H 107 H 106 H Respiratory Rate 20 20 Blood Pressure Pulse Oximetry 12/23/19 16:00 12/23/19 18:00 12/23/19 20:00 Temperature 97.7 F 97.7 F Pulse Rate 109 H 102 H 88 Respiratory Rate 22 H 24 H Blood Pressure 114/70 114/70 Pulse Oximetry 97 97 12/23/19 20:15 12/23/19 20:26 12/23/19 20:28 Temperature Pulse Rate 85 85 Respiratory Rate 20 20 Blood Pressure Pulse Oximetry 97 12/23/19 22:00 12/23/19 23:55 12/24/19 00:00 Temperature 98.0 F Pulse Rate 68 75 75 Respiratory Rate 20 Blood Pressure 116/54 L Pulse Oximetry 96 12/24/19 01:35 12/24/19 01:42 12/24/19 02:00 Temperature Pulse Rate 75 77 81 Respiratory Rate
--- NOTE | 2019-12-24 17:10 | ECG_ITS ---
Measurements Intervals [place] Rate: 116 P: 74 [place]: 132 QRS: 79 QRSD: 76 T: 60 QT: 281 QTc: 391 Interpretive Statements SINUS TACHYCARDIA RSR' IN V1 OR V2, CONSIDER RIGHT VENTRICULAR HYPERTROPHY OR RIGHT VCD MINIMAL Q WAVES- INFERIOR LEADS ABNORMAL ECG Electronically Signed On 12-25-2019 7:24:35 CDT by Fitz Green D.O.
[2019-12-25] VITALS (9 sets, daily range): BP systolic 125–139; BP diastolic 61–81; PULSE 75–109; RESP 18–24; TEMP 36.3–36.7; O2SAT 92–98
[2019-12-25] MEDS: IPRATROPIUM BR 0.02% INH SOLN 0.5 MG/2.5 ML VIAL INHALATION ×2 (02:55→08:31)
[2019-12-25 05:14] LABS: Hematocrit 37.1 % (37.0-47.0); Hemoglobin 11.2 g/dL (12.0-15.0); Mean Corpuscular HGB Conc 30.2 g/dl (32-36); Mean Corpuscular Hemoglobin 29.1 pg (26-34); Mean Corpuscular Volume 96.4 fl (80-100); Mean Platelet Volume 9.9 fl (7.4-10.4); Platelet Count Result 261 k/mm3 (150-375); Red Blood Count 3.85 M/mm3 (4.2-5.4); Red Cell Distribution Width 13.1 % (11.5-14.5); White Blood Count 11.1 K/mm3 (4.5-10.0)
[2019-12-25 05:23] LABS: Alveolar/Arterial O2 Gradient 101.9 mmHg; Base Excess ABG 13.7 mEq/l (+/-2.0); Fractional Inspired Oxygen 36 %; HCO3 ABG 41.9 mEq/l (22.0-26.0); Oxyhemoglobin 93.6 % THb (90.0-100.0); PO2 ABG 70.2 mmHg (80.0-100.0); PO2 FiO2 Ratio Arterial Blood 1.95 %; Total Hemoglobin 12.1 g/dL (12.0-18.0); pH ABG 7.377 (7.350-7.450)
[2019-12-25 05:26] LABS: Device NASAL CANNULA; PCO2 ABG 72.9 mmHg (35.0-45.0); Site Drawn RIGHT BRACHIAL
[2019-12-25 05:33] LABS: Blood Urea Nitrogen 17 mg/dL (7-17); Calcium 8.6 mg/dL (8.4-10.2); Carbon Dioxide > 40 mmol/L (22-30); Chloride 93 mmol/L (98-107); Estimated CRCL calculation 103 ml/min; Estimated Glomerular Filt Rate > 60; Glucose 93 mg/dL (65-105); Potassium 3.9 mmol/L (3.4-5.0); Sodium 137 mmol/L (137-145)
[2019-12-25] MEDS: NICOTINE (*PBKC) 7 MG PATCH 1 PATCH TRANSDERM (09:07)
[2019-12-25] MEDS: methylPREDNISolone SOD SUCC 40 MG VIAL 20 MG IV PUSH (09:07)
[2019-12-25] MEDS: APIXABAN 5 MG TABLET 10 MG PO (09:08)
== END 2019-12-25 11:15 | disposition home or self-care (01) | DRG 193 ==
LOC: ANHED 19:18 → ANHIMU 21:19
PROVIDERS: Family Medicine; Nurse Practitioner Family; Admitting Provider Internal Medicine; Emergency Provider Emergency Medicine; PCP Family Medicine; Visit Provider Internal Medicine
DX: J18.9 Pneumonia, unspecified organism (principal); J96.22 Acute and chronic respiratory failure with hypercapnia; J96.21 Acute and chronic respiratory failure with hypoxia; I26.99 Other pulmonary embolism without acute cor pulmonale; J44.0 Chronic obstructive pulmonary disease with (acute) lower respiratory infection; J20.9 Acute bronchitis, unspecified; F17.200 Nicotine dependence, unspecified, uncomplicated; Z91.19 Patient's noncompliance with other medical treatment and regimen; Z90.721 Acquired absence of ovaries, unilateral; Z99.81 Dependence on supplemental oxygen
CPT/HCPCS: 36415; 36600; 71045; 71275; 80048; 80053; 82805; 83605; 83735; 83880; 84484; 85025; 85027; 85610; 85730; 87040; 87070; 87205; 87449; 87804; 87899; 93005; 94640; 94660; 96372; 96374; 96375; 99285; A9270; J1650; J1956; J2920; J2930; J7030; Q9967

== ENCOUNTER 2020-11-19 18:37 | Inpatient (IN) | payer BC, SELFPAY ==
[2020-11-19] VITALS (7 sets, daily range): BP systolic 109–136; BP diastolic 56–78; PULSE 82–97; RESP 14–35; TEMP 36.8; O2SAT 95–100
--- NOTE | ~2020-11-19 | CT_ITS ---
EXAMINATION: CT brain wo con DATE: 11/19/2020 23:17 INDICATION: Altered mental status. TECHNIQUE: Computed tomography (CT) of the head was performed without intravenous contrast. Sagittal and coronal reconstructions were performed. The mA was adjusted according to patient size. Iterative reconstruction technique was employed. The dose-length product was 605.33 mGy-cm. COMPARISON: None FINDINGS: No acute intracranial hemorrhage, acute infarction or abnormal extra axial fluid collection. Ventricl es are normal and symmetric. No mass/mass effect. The orbits, paranasal sinuses and mastoid air cells are normal. IMPRESSION: 1. Normal head CT. Reviewed, dictated and finalized at location A. BLE REPRESENTATIVE IMPRESSION: 1. Normal head CT.
--- NOTE | ~2020-11-19 | XR_ITS ---
EXAMINATION: XR chest 1V portable DATE: 11/19/2020 20:25 INDICATION: COPD, asthma and bronchitis presenting with weakness and shortness of breath. TECHNIQUE: frontal view of the chest was obtained. COMPARISON: Chest radiograph and CT dated 12/21/2019 FINDINGS: Hyperexpansion of lungs with increased lucency and architectural distortion in the right upper lung z one consistent with emphysema better appreciated on prior CT . No focal airspace opacities, pulmonary edema, pleural effusion or pneumothorax. The cardiomediastinal silhouette is normal. Visualized bone s and soft tissues are unremarkable. IMPRESSION: 1. Mild emphysema. Reviewed, dictated and finalized at location A. GN INSERTER IMPRESSION: 1. Mild emphysema.
--- NOTE | 2020-11-19 19:10 | ECG_ITS ---
Measurements Intervals [place] Rate: 80 P: 90 IN: 160 QRS: 119 QRSD: 98 T: 65 QT: 355 QTc: 411 Interpretive Statements SINUS RHYTHM RIGHT AXIS DEVIATION RSR' IN V1 OR V2, CONSIDER RIGHT VENTRICULAR HYPERTROPHY OR RIGHT VCD MINIMAL Q WAVES- ANTEROLAT/INF LEADS BASELINE ARTIFACT- I, III, AVR, AVL, AVF, V1-V4 BORDERLINE ECG Electronically Signed On 11-20-2020 7:05:42 [employer]VAS REPAIRER by Fitz Green D.O.
--- NOTE | 2020-11-19 19:10 | ED.GENADULT ---
HPI - General Adult General Chief complaint: Unspecified Stated complaint: lethargic Time Seen by Provider: 11/19/20 18:44 Source: patient and family Mode of arrival: ambulatory Limitations: no limitations History of Present Illness HPI narrative: A 55-year-old female was brought into the emergency department with her after complaints of altered mental status. Patient notes that she has been acting very out of sorts lately. Patient's also notes that she has been sleeping since yesterday and too late today. He states that she wears a trilogy machine when she is supposed to be sleeping to help prevent CO2 buildup. He notes that this broke and she was I am unable to use it for the past week or so. He got the new part in and patient was still not using this. He states that with the way she was acting he was concerned that her CO2 levels may be too high. Patient states that she feels fine and has no complaints. She is confused as to why she is in the hospital. Related Data Allergies Allergy/AdvReac Type Severity Reaction Status Date / Time Penicillins Allergy Unknown Hives Verified 11/19/20 19:39 Review of Systems Review of Systems: Narrative: CONSTITUTIONAL: Denies fever, chills, or sweats. EYES: Denies visual changes, redness, or discharge. ENT: Denies rhinorrhea, congestion, sore throat, or otalgia. CARDIOVASCULAR: Denies chest pain, palpitations, or edema. RESPIRATORY: Denies cough or dyspnea. GASTROINTESTINAL: Denies abdominal pain, nausea, vomiting, or diarrhea. GENITOURINARY: Denies dysuria or hematuria. SKIN: Denies rash or itching. MUSCULOSKELETAL: Denies back pain, joint pain, or myalgia. NEUROLOGIC: Denies headache, numbness, dizziness, or weakness. PSYCHIATRIC: Denies anxiety or depression. [facility] Past Medical History Medical History (Updated 11/19/20 @ 23:52 by Uri Jansen DO) Anemia Angina at rest Asthma Bronchitis COPD (chronic obstructive pulmonary disease) Kidney stone Lung nodule On home oxygen therapy 2L at rest, 3L with activity Post-menopausal Pulmonary embolism Pulmonary hypertension Seizure Surgical History Surgical History H/O section H/O tubal ligation History of right oophorectomy Hx of tonsillectomy Family History Family History Grandparent Family history of cardiovascular disease Hypertension Mother Family history of cardiovascular disease Family history of elevated blood lipids Social History Social History Smoking packs per day: 1 Smoking cigarettes per day: 20.0 Years smoked: 35 Smoking pack-years: 35.00 Smoking status: Current every day smoker Tobacco type: cigarettes Second hand tobacco smoke exposure: Yes Alcohol intake: never Substance use: never Substance use type: does not use Gender identity (if verbalized by the patient): Female Spiritual care concerns: No Agree to blood products: Yes Exam Narrative: Exam Narrative: GENERAL: Well-appearing, well-nourished, and in no acute distress. HEAD: Normocephalic, atraumatic. EYES: PERRLA and EOMI. ENT: Nares clear, no rhinorrhea or epistaxis. Mucous membranes moist. Nasal cannula. NECK: Supple. No adenopathy or masses. No carotid bruits or JVD CHEST: Clear to auscultation. No respiratory distress. No wheezes rales or rhonchi HEART: Regular rate and rhythm. No murmur heard. Normal peripheral pulses. ABDOMEN: Soft, nontender, nondistended, normal active bowel sounds. EXTREMITIES: Normal range of motion. No edema. SKIN: Warm, dry, no rash. NEURO: No focal deficits. Alert and oriented x3. PSYCH: Normal mood and affect. Course Reevaluation(s) Reevaluation #1: Spoke with patient and after discussion with her and her they state that they will be willing to stay in the hospital. Respiratory paged to star
[2020-11-19 19:35] LABS: Basophils Percent Auto 0.4 % (0.2-1.2); Eosinophils Absolute Auto 0.1 K/mm3 (0-0.3); Eosinophils Percent Auto 2.4 % (0-4.4); Hematocrit 36.4 % (37.0-47.0); Hemoglobin 10.8 g/dL (12.0-15.0); Immature Granulocyte Absolute 0.02 K/mm3 (0.00-0.031); Immature Granulocyte Percent A 0.4 % (0-0.5); Lymphocytes Absolute Auto 1.46 K/mm3 (0.9-3.2); Mean Corpuscular HGB Conc 29.7 g/dl (32-36); Mean Corpuscular Volume 97.6 fl (80-100); Mean Platelet Volume 9.8 fl (7.4-10.4); Monocytes Absolute Auto 0.3 K/mm3 (0.1-0.6); Neutrophils Absolute Auto 2.6 K/mm3 (1.3-6.7); Neutrophils Percent Auto 57.8 % (45.5-73.1); Platelet Count Result 159 k/mm3 (150-375); Red Blood Count 3.73 M/mm3 (4.2-5.4); Red Cell Distribution Width 12.2 % (11.5-14.5); White Blood Count 4.6 K/mm3 (4.5-10.0)
[2020-11-19 19:46] LABS: Hypochromasia 1+ (NORMAL); Platelet Estimate Adequate (Adequate); Stomatocytes 1+ (NORMAL)
--- NOTE | 2020-11-19 19:47 | PC.NURSE ---
advised [id number]
[2020-11-19 19:48] LABS: Alveolar/Arterial O2 Gradient 35.7 mmHg; Base Excess ABG 26.5 mEq/l (+/-2.0); Fractional Inspired Oxygen 32 %; HCO3 ABG 58.6 mEq/l (22.0-26.0); Oxygen Content ABG 14.3 %vol (16.0-22.0); Oxyhemoglobin 87.8 % THb (90.0-100.0); PCO2 ABG 119.7 mmHg (35.0-45.0); PO2 ABG 52.4 mmHg (80.0-100.0); PO2 FiO2 Ratio Arterial Blood 1.64 %; Total Hemoglobin 11.6 g/dL (12.0-18.0); pH ABG 7.308 (7.350-7.450)
[2020-11-19 19:49] LABS: Device NASAL CANNULA; Modified Allen's Test Pass; Oxygen Saturation ABG 79.7 % (95.0-100.0); Site Drawn RIGHT RADIAL
--- NOTE | 2020-11-19 20:53 | PC.NURSE ---
resp called for bypap
[2020-11-19 21:47] LABS: Alanine Aminotransferase 9 U/L (4-35); Albumin Level 3.6 g/dL (3.5-5.1); Alkaline Phosphatase 42 U/L (38-126); Aspartate Amino Transferase 19 U/L (14-36); Bilirubin,Total 0.4 mg/dL (0.2-1.3); Blood Urea Nitrogen 9 mg/dL (7-17); Calcium 8.6 mg/dL (8.4-10.2); Carbon Dioxide > 40 mmol/L (22-30); Chloride 81 mmol/L (98-107); Estimated CRCL calculation 103 ml/min; Estimated Glomerular Filt Rate > 60; Glucose 97 mg/dL (65-105); Magnesium 1.9 mg/dL (1.6-2.3); Sodium 135 mmol/L (137-145)
[2020-11-19 21:55] LABS: Potassium 4.5 mmol/L (3.4-5.0)
--- NOTE | 2020-11-19 23:18 | PM.IMHP ---
H&P: HPI History of Present Illness Date/Time: 11/19/20 23:18 Chief Complaint: acute altered mental status. Narrative: This is a 55 year old female known to have chronic respiratory failure on 4-5 L of oxygen at home at all times, COPD, and chronically anticoagulated on Eliquis secondary to recurrent PE who presented to the hospital with her secondary to altered mental status. The patient is known to use a trilogy machine at home although it broke about a week ago. Since then she has not been using her trilogy. She continues to smoke a few cigarettes daily. She has chronic shortness of breath which hasn't changed and is known to cough chronically. She denies any change of sputum. She also has not had any fevers, chills, chest pain, nausea, vomiting, abdominal pain, dysuria, diarrhea, rectal bleeding or LE swelling. The patient was evaluated in the ER tonight and ABG demonstrated hypercapnic respiratory failure. She was initiated on Bipap and we were asked to admit her for her respiratory failure. No other complaints. Review of Systems Review of Systems: All systems reviewed & are unremarkable except as noted in HPI and below PMFSH Past Medical History Medical History (Updated 11/20/20 @ 05:07 by Ortiz Cash MD) Anemia Angina at rest Asthma Bronchitis COPD (chronic obstructive pulmonary disease) Kidney stone Lung nodule On home oxygen therapy 2L at rest, 3L with activity Post-menopausal Pulmonary embolism Pulmonary hypertension Seizure Surgical History Surgical History H/O section H/O tubal ligation History of right oophorectomy Hx of tonsillectomy Family History Family History (Updated 11/20/20 @ 02:19 by Shweta Gutierrez RN) Grandparent Family history of cardiovascular disease Hypertension History of blood clots Congestive heart failure Mother Family history of cardiovascular disease Family history of elevated blood lipids Chronic obstructive pulmonary disease Diabetes mellitus Sibling Chronic obstructive pulmonary disease Diabetes mellitus Social History Social History Smoking packs per day: 0.2 Smoking cigarettes per day: 4.0 Years smoked: 35 Smoking pack-years: 7.00 Smoking status: Current every day smoker Tobacco type: cigarettes Second hand tobacco smoke exposure: Yes Additional smoking assessment comments: 2-3 a day Alcohol intake: former Substance use: never Substance use type: does not use Gender identity (if verbalized by the patient): Female Spiritual care concerns: No Agree to blood products: Yes Meds Home Medications and Allergies Home Medications Medication Instructions Recorded Confirmed Type acetaminophen [Mapap 650 mg PO Q4H PRN #0 tablet 12/24/19 11/20/20 Rx (acetaminophen)] revefenacin 175 mcg/3 mL solution 175 mcg INHALATION DAILY 90 Days 05/26/20 11/20/20 Rx for nebulization #270 ml Eliquis 5 mg PO BID 11/20/20 11/20/20 History albuterol sulfate 1 puff INHALATION Q4-6H PRN 11/20/20 11/20/20 History albuterol sulfate 2.5 mg INHALATION DAILY PRN 11/20/20 11/20/20 History budesonide 0.5 mg INHALATION BID 11/20/20 11/20/20 History Allergies Allergy/AdvReac Type Severity Reaction Status Date / Time Penicillins Allergy Unknown Hives Verified 11/20/20 01:39 Vital Signs Vital Signs - 24 hr 11/19/20 18:44 11/19/20 19:42 11/19/20 21:12 Temperature 36.8 C Pulse Rate 84 91 90 Respiratory Rate 35 H 28 H 22 H Blood Pressure 136/56 L 129/78 109/64 Pulse Oximetry 100 95 100 11/19/20 21:23 11/19/20 21:43 11/19/20 22:59 Temperature Pulse Rate 90 87 82 Respiratory Rate 26 H 24 H 24 H Blood Pressure 120/72 113/68 Pulse Oximetry 99 95 95 Exam Const: General: cooperative, alert, awake, ill appearing chronically and other (On Bipap+ ) Nutritional Appearance: well nourished Or
[2020-11-20] VITALS (29 sets, daily range): BP systolic 118–134; BP diastolic 64–99; PULSE 72–107; RESP 18–33; TEMP 35.9–36.9; O2SAT 90–100; BMI 25.0
--- NOTE | 2020-11-20 00:40 | ECG_ITS ---
Measurements Intervals [place] Rate: 80 P: 88 SC: 157 QRS: 77 QRSD: 90 T: 70 QT: 358 QTc: 415 Interpretive Statements SINUS RHYTHM INCOMPLETE RIGHT BUNDLE BRANCH BLOCK MINIMAL Q WAVES- INFERIOR LEADS ST ELEVATION IN ANTEROLAT/INF LEADS, PROBABLY EARLY REPOLARIZATION BASELINE ARTIFACT- I, II, III, AVR, AVL, AVF, V1-V6 BORDERLINE ECG Electronically Signed On 11-20-2020 10:31:25 POULTRY CUTTER by Fitz Green D.O.
[2020-11-20 00:47] LABS: Base Excess ABG 19.1 mEq/l (+/-2.0); Fractional Inspired Oxygen 35 %; HCO3 ABG 48.3 mEq/l (22.0-26.0); Oxygen Content ABG 13.8 %vol (16.0-22.0); Oxygen Saturation ABG 88.9 % (95.0-100.0); Oxyhemoglobin 91.8 % THb (90.0-100.0); PO2 ABG 61.5 mmHg (80.0-100.0); PO2 FiO2 Ratio Arterial Blood 1.76 %; Total Hemoglobin 10.7 g/dL (12.0-18.0); pH ABG 7.358 (7.350-7.450)
[2020-11-20 00:49] LABS: Device NON-INVASIVE VENT; Modified Allen's Test Pass; Non-Invasive Expiratory Pressure 8 CMH2O; Non-Invasive Inspiratory Pressure 14 CMH2O; Non-Invasive Vent Rate 14 /MIN; PCO2 ABG 87.8 mmHg (35.0-45.0); Site Drawn RIGHT RADIAL
--- NOTE | 2020-11-20 02:00 | PC.NURSE ---
This patient, Jaclyn Kessler, was admitted to IMU Room 200-01. Patient is too drowsy and forgetful currently to be fully oriented to hospital policies and general routines including ID bracelet, bed and alarms, visiting hours, pain management, procedures, bathroom and other care routines, personal items, smoking policy, room service/diet, and visiting hours. Patient encouraged to report perceived risks to care and to ask questions if they do not understand what they are told or what they should do.
[2020-11-20 02:03] LABS: Troponin I < 0.012 ng/mL (0.000-0.034)
[2020-11-20] MEDS: ALBUTEROL SULFATE NEB 2.5 MG/0.5 ML INH 5 MG INHALATION ×5 (04:20→21:13)
[2020-11-20 04:47] LABS: Basophils Percent Auto 0.5 % (0.2-1.2); Eosinophils Absolute Auto 0.1 K/mm3 (0-0.3); Eosinophils Percent Auto 0.8 % (0-4.4); Hematocrit 33.1 % (37.0-47.0); Hemoglobin 9.9 g/dL (12.0-15.0); Immature Granulocyte Absolute 0.02 K/mm3 (0.00-0.031); Immature Granulocyte Percent A 0.3 % (0-0.5); Lymphocytes Absolute Auto 1.45 K/mm3 (0.9-3.2); Lymphocytes Percent Auto 23.3 % (18.3-44.2); Mean Corpuscular HGB Conc 29.9 g/dl (32-36); Mean Corpuscular Hemoglobin 28.4 pg (26-34); Mean Corpuscular Volume 94.8 fl (80-100); Monocytes Absolute Auto 0.4 K/mm3 (0.1-0.6); Monocytes Percent Auto 6.7 % (2.6-8.5); Neutrophils Absolute Auto 4.3 K/mm3 (1.3-6.7); Neutrophils Percent Auto 68.4 % (45.5-73.1); Platelet Count Result 167 k/mm3 (150-375); Red Blood Count 3.49 M/mm3 (4.2-5.4); Red Cell Distribution Width 12.1 % (11.5-14.5); White Blood Count 6.2 K/mm3 (4.5-10.0)
[2020-11-20 05:03] LABS: Potassium 4.4 mmol/L (3.4-5.0)
[2020-11-20 05:18] LABS: Blood Urea Nitrogen 9 mg/dL (7-17); Calcium 8.9 mg/dL (8.4-10.2); Carbon Dioxide > 40 mmol/L (22-30); Chloride 82 mmol/L (98-107); Estimated CRCL calculation 103 ml/min; Estimated Glomerular Filt Rate > 60; Glucose 84 mg/dL (65-105); Sodium 135 mmol/L (137-145)
[2020-11-20 06:40] LABS: Alveolar/Arterial O2 Gradient 83.1 mmHg; Base Excess ABG 18.4 mEq/l (+/-2.0); Device NON-INVASIVE VENT; Fractional Inspired Oxygen 35 %; HCO3 ABG 47.1 mEq/l (22.0-26.0); Modified Allen's Test Pass; Oxygen Content ABG 14.1 %vol (16.0-22.0); Oxygen Saturation ABG 92.4 % (95.0-100.0); Oxyhemoglobin 93.6 % THb (90.0-100.0); PCO2 ABG 83.2 mmHg (35.0-45.0); PO2 ABG 69.7 mmHg (80.0-100.0); PO2 FiO2 Ratio Arterial Blood 1.99 %; Site Drawn RIGHT RADIAL; Total Hemoglobin 10.7 g/dL (12.0-18.0); pH ABG 7.371 (7.350-7.450)
[2020-11-20 06:41] LABS: Non-Invasive Expiratory Pressure 8 CMH2O; Non-Invasive Inspiratory Pressure 14 CMH2O; Non-Invasive Vent Rate 14 /MIN
[2020-11-20 09:27] LABS: Thyroid Stimulating Hormone Reflex 0.321 uIU/mL (0.465-4.68)
--- NOTE | 2020-11-20 09:44 | ECG_ITS ---
Measurements Intervals [place] Rate: 86 P: 84 PA: 162 QRS: 82 QRSD: 82 T: 75 QT: 335 QTc: 402 Interpretive Statements SINUS RHYTHM INCOMPLETE RIGHT BUNDLE BRANCH BLOCK MINIMAL Q WAVES- INFERIOR LEADS BASELINE ARTIFACT- I, II, III, AVR, AVL, AVF, V1-V2 BORDERLINE ECG Electronically Signed On 11-20-2020 10:31:59 CLINICAL INFORMATICS SPEC by Fitz Green D.O.
[2020-11-20] MEDS: BUDESONIDE RESPULE NEB 0.5 MG/2 ML AMP INHALATION ×2 (09:50→21:13)
[2020-11-20] MEDS: APIXABAN 5 MG TABLET PO ×2 (10:27→21:33)
[2020-11-20 11:50] LABS: Free T4 Free Thyroxine Reflex 0.88 ng/dL (0.78-2.19)
[2020-11-20 12:47] LABS: Total Triiodothyronine (T3) 0.87 NG/ML (0.97-1.69)
--- NOTE | 2020-11-20 13:50 | PM.IMPN ---
Progress Note: A&P Assessment and Plan (1) Acute encephalopathy: Code(s): G93.40 - Encephalopathy, unspecified Status: Resolved Assessment and Plan: Appears to be secondary to hypercapnia. CT brain was unremarkable. Pt had ABG this morning i will order for josiah (2) Acute on chronic respiratory failure with hypercapnia: Code(s): J96.22 - Acute and chronic respiratory failure with hypercapnia Status: Acute Assessment and Plan: Appears to be secondary to the patient not using her Trilogy. (3) COPD (chronic obstructive pulmonary disease): Qualifiers: COPD type: unspecified COPD Qualified Code(s): J44.9 - Chronic obstructive pulmonary disease, unspecified Code(s): J44.9 - Chronic obstructive pulmonary disease, unspecified Status: Chronic Assessment and Plan: Continue bronchodilators, oxygen supplementation and inhaled steroid therapy. (4) Tobacco dependence: Code(s): F17.200 - Nicotine dependence, unspecified, uncomplicated Status: Chronic Assessment and Plan: I have counseled the patient regarding tobacco cessation for 4 minutes.I have ordered nicitine patch (5) Chronic anticoagulation: Code(s): Z79.01 - jail (current) use of anticoagulants Status: Chronic Assessment and Plan: Continue Eliquis therapy. Subjective Date/time seen: 11/20/20 13:50 Interval history: 55 year old female known to have chronic respiratory failure on 4-5 L of oxygen at home at all times, COPD, and chronically anticoagulated on Eliquis secondary to recurrent PE who presented to the hospital with her secondary to altered mental status. Pt is not confused today doing better on oxygen and BIPAP prn. Pt is a smoker 3 cigs a day. Review of Systems Review of Systems: All systems reviewed & are unremarkable except as noted in HPI and below Exam Const: General: cooperative, alert, awake and ill appearing chronically Resp: Effort & Inspection: normal respiratory effort Cardio: Rate: regular rate Rhythm: regular rhythm Heart sounds: no murmurs GI: Inspection: normal to inspection Auscultation: normal bowel sounds Skin: General skin exam: normal color and no rashes or lesions noted Neuro: General: patient oriented x3 Cranial nerves: Yes CN's II-XII intact bilaterally and Yes Equal, round and reactive pupils present Speech: normal speech Motor exam (neuro): 5/5 motor strength present throughout Sensory Exam: normal sensation Extrem: General: normal to inspection and no edema Psych: Mental Status: mental status grossly normal Affect: normal affect Objective Data Vital Signs Vital Signs: Vital Signs - 24 hr 11/19/20 18:44 11/19/20 19:42 11/19/20 21:12 Temperature 36.8 C Pulse Rate 84 91 90 Respiratory Rate 35 H 28 H 22 H Blood Pressure 136/56 L 129/78 109/64 Pulse Oximetry 100 95 100 11/19/20 21:23 11/19/20 21:43 11/19/20 22:59 Temperature Pulse Rate 90 87 82 Respiratory Rate 26 H 24 H 24 H Blood Pressure 120/72 113/68 Pulse Oximetry 99 95 95 11/19/20 23:10 11/20/20 00:05 11/20/20 01:00 Temperature Pulse Rate 97 77 89 Respiratory Rate 14 28 H 22 H Blood Pressure 119/71 118/99 H Pulse Oximetry 97 96 98 11/20/20 01:15 11/20/20 01:18 11/20/20 01:21 Temperature 36.2 C L Pulse Rate 87 89 107 H Respiratory Rate 33 H 28 H Blood Pressure 129/72 Pulse Oximetry 100 96 11/20/20 01:30 11/20/20 03:30 11/20/20 04:00 Temperature 36.1 C L Pulse Rate 76 Respiratory Rate 33 H Blood Pressure 134/92 H Pulse Oximetry 95 95 99 11/20/20 04:21 11/20/20 04:32 11/20/20 04:33 Temperature Pulse Rate 85 81 85 Respiratory Rate 24 H 22 H 24 H Blood Pressure Pulse Oximetry 95 11/20/20 06:00 11/20/20 08:00 11/20/20 08:10 Temperature 35.9 C L Pulse Rate 72 78 75 Respiratory Rate 22 H Blood Pressure 133/80 Pulse Oximetry 94 97 11/20/20 09:49 11/20/20
[2020-11-20] MEDS: NICOTINE (*PBKC) 14 MG PATCH 1 PATCH TRANSDERM (14:34)
--- NOTE | 2020-11-20 17:00 | PC.NURSE ---
Transfer received from IMU room 200/01. Report received from LINSEY Vega.
--- NOTE | 2020-11-20 17:08 | PC.NURSE ---
This patient, Jaclyn Kessler, was transferred to [[id number] ] on 11/20/20 at 1708. Personal belongings sent with patient. Report given to [mohsen daley rn ]. Appropriate documentation sent with patient.
[2020-11-21] VITALS (8 sets, daily range): BP systolic 108; BP diastolic 59; PULSE 79–84; RESP 15–30; TEMP 37.1; O2SAT 93–98
[2020-11-21] MEDS: ALBUTEROL SULFATE NEB 2.5 MG/0.5 ML INH 5 MG INHALATION ×3 (00:29→08:18)
[2020-11-21] MEDS: BUDESONIDE RESPULE NEB 0.5 MG/2 ML AMP INHALATION (08:18)
[2020-11-21 08:22] LABS: Alveolar/Arterial O2 Gradient 75.6 mmHg; Base Excess ABG 19.4 mEq/l (+/-2.0); Fractional Inspired Oxygen 35 %; HCO3 ABG 46.9 mEq/l (22.0-26.0); Modified Allen's Test Pass; Oxygen Content ABG 14.6 %vol (16.0-22.0); Oxygen Saturation ABG 96.8 % (95.0-100.0); Oxyhemoglobin 96.2 % THb (90.0-100.0); PCO2 ABG 71.6 mmHg (35.0-45.0); PO2 ABG 90.7 mmHg (80.0-100.0); PO2 FiO2 Ratio Arterial Blood 2.59 %; Site Drawn LEFT RADIAL; Total Hemoglobin 10.7 g/dL (12.0-18.0); pH ABG 7.434 (7.350-7.450)
[2020-11-21 08:23] LABS: Device NON-INVASIVE VENT; Non-Invasive Expiratory Pressure 8 CMH2O; Non-Invasive Inspiratory Pressure 14 CMH2O; Non-Invasive Vent Rate 14 /MIN
[2020-11-21] MEDS: APIXABAN 5 MG TABLET PO (08:51)
--- NOTE | 2020-11-21 10:29 | PM.DS ---
DS: Admitting Diagnosis Admitting Diagnosis Admitting Diagnosis: Chief Complaint: acute altered mental status. DS: Discharge Diagnosis Discharge Diagnosis (1) Acute encephalopathy: Code(s): G93.40 - Encephalopathy, unspecified Status: Resolved Assessment and Plan: Appears to be secondary to hypercapnia. CT brain was unremarkable. Pt had ABG this morning i will order for josiah (2) Acute on chronic respiratory failure with hypercapnia: Code(s): J96.22 - Acute and chronic respiratory failure with hypercapnia Status: Acute Assessment and Plan: Appears to be secondary to the patient not using her Trilogy. (3) COPD (chronic obstructive pulmonary disease): Qualifiers: COPD type: unspecified COPD Qualified Code(s): J44.9 - Chronic obstructive pulmonary disease, unspecified Code(s): J44.9 - Chronic obstructive pulmonary disease, unspecified Status: Chronic Assessment and Plan: Continue bronchodilators, oxygen supplementation and inhaled steroid therapy. 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 DS: Summary Hospital Course Reason for hospitalization: Chief Complaint: acute altered mental status. Narrative: This is a 55 year old female known to have chronic respiratory failure on 4-5 L of oxygen at home at all times, COPD, and chronically anticoagulated on Eliquis secondary to recurrent PE who presented to the hospital with her secondary to altered mental status. The patient is known to use a trilogy machine at home although it broke about a week ago. Since then she has not been using her trilogy. She continues to smoke a few cigarettes daily. She has chronic shortness of breath which hasn't changed and is known to cough chronically. She denies any change of sputum. She also has not had any fevers, chills, chest pain, nausea, vomiting, abdominal pain, dysuria, diarrhea, rectal bleeding or LE swelling. The patient was evaluated in the ER tonight and ABG demonstrated hypercapnic respiratory failure. She was initiated on Bipap and we were asked to admit her for her respiratory failure. No other complaints. Hospital Course: 55 year old female known to have chronic respiratory failure on 4-5 L of oxygen at home at all times, COPD, and chronically anticoagulated on Eliquis secondary to recurrent PE who presented to the hospital with her secondary to altered mental status. Pt is not confused today doing better on oxygen and BIPAP prn. Pt is a smoker 3 cigs a day. Patient had CT of head which was normal. 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 Time Spent with Patient Time attestation: Total time spent providing and/or coordinating discharge services: Exam Narrative: Exam Narrative: Patient is comfortable, NAD HEENT: eyes are clear and none icteric LUNGS:CTA HEART: RR S1S2 ABD: BS+, Soft and nontender Lower extremities: no edema SKIN: nonjaundiced Neuro: grossly intact. DS: Data Data Completed and Pending Labs on day of discharge: Labs from last 24 hours 11/21/20 11/20/20 11/20/20 08:09 04:10 04:10 Puncture Site Left radial ABG pH 7.434 ABG pCO2 71.6 H* ABG pO2 90.7 ABG PO2/FiO2 Ratio 2.59 ABG HCO3 46.9 H ABG O2 Saturation 96.8 ABG O2 Content 14.6 L ABG Base Excess 19.4 A-a Gradient 75.6 Oxyhemoglobin 96.2 Total Hemoglobin 10.7 L O2 Delivery Device Non-invasive vent O2 Liters/Min Not Reportable
== END 2020-11-21 12:15 | disposition home or self-care (01) | DRG 189 ==
LOC: ANHED 23:52 → ANHIMU 11-20 00:25 → ANH3MED 11-21 10:29 → ANHIMU 11-25 13:53
PROVIDERS: Family Medicine; Admitting Provider Family Medicine; Emergency Provider Emergency Medicine; PCP Family Medicine; Visit Provider Family Medicine
DX: J96.22 Acute and chronic respiratory failure with hypercapnia (principal); G93.40 Encephalopathy, unspecified; J44.9 Chronic obstructive pulmonary disease, unspecified; I27.20 Pulmonary hypertension, unspecified; F17.210 Nicotine dependence, cigarettes, uncomplicated; Z23 Encounter for immunization; Z79.01 Long term (current) use of anticoagulants; Z79.899 Other long term (current) drug therapy; Z86.711 Personal history of pulmonary embolism; Z88.0 Allergy status to penicillin; Z99.81 Dependence on supplemental oxygen
CPT/HCPCS: 36415; 36600; 70450; 71045; 80048; 80053; 82607; 82746; 82805; 83735; 84439; 84443; 84480; 84484; 85025; 90471; 90653; 93005; 94002; 94003; 94640; 94660; 99285; A9270; G0008; G0378

== ENCOUNTER 2021-04-13 02:23 | Observation (INO) | payer BC, SELFPAY ==
[2021-04-13] VITALS (38 sets, daily range): BP systolic 93–147; BP diastolic 33–101; PULSE 71–132; RESP 17–30; TEMP 36.4–36.7; O2SAT 84–100; BMI 24.0
--- NOTE | ~2021-04-13 | XR_ITS ---
XR chest 1V portable DATE: 04/13/2021 03:22 INDICATION: Cough, shortness of breath. History of COPD. TECHNIQUE: Portable upright AP chest on 04/13/2021 at 0322 hours COMPARISON: 11/19/2020 portable upright AP chest at 2020 hours FINDINGS: Moderate bilateral hyperinflation. No pulmonary consolidation, pleural effusion or pneumoth orax. Normal heart size. Diffuse osteopenia. IMPRESSION: No active cardiopulmonary disease Diffuse osteopenia Reviewed, dictated and finalized at location A.
--- NOTE | ~2021-04-13 | US_ITS ---
EXAMINATION: US venous doppler LE RT DATE: 04/13/2021 12:19 INDICATION: Right lower limb swelling. TECHNIQUE: Grayscale ultrasound images without and with compression and Doppler ultrasound images of the right lower extremity veins were obtained. COMPARISON: Ultrasound 10/19/2018 FINDINGS: The visualized portions of right common femoral vein, profunda (deep) femoral vein, femoral vein, pop liteal vein, peroneal veins, posterior tibial veins, and greater saphenous vein outflow are patent. IMPRESSION: 1. No deep venous thrombosis. Reviewed, dictated and finalized at location A.
--- NOTE | ~2021-04-13 | CT_ITS ---
EXAMINATION: CT brain wo con DATE: 04/13/2021 02:50 INDICATION: Fall. Altered mental status. TECHNIQUE: Computed tomography (CT) of the head was performed without intravenous contrast. The mA wa s adjusted according to patient size. Iterative reconstruction technique was employed. Exam dose: 68 1.00 mGy-cm total exam DLP. COMPARISON: 11/19/2020 CT brain FINDINGS: There is mild motion artifact. Bilateral carotid siphon internal carotid artery calcifications. No intracranial mass lesion or hemorrhage, midline shift or mass effect effect. No subdural or epidur al hematoma. No skull fracture or bone destruction. Included paranasal sinuses and mastoid air cells are normally developed and aerated. IMPRESSION: No acute intracranial finding or skull fracture Cerebral atherosclerosis Reviewed, dictated and finalized at Location [facility]. Reviewed, dictated and finalized at location A.
--- NOTE | ~2021-04-13 | CT_ITS ---
EXAMINATION: CT cervical spine wo con DATE: 04/13/2021 02:50 INDICATION: Ground-level fall. TECHNIQUE: Computed tomography (CT) of the cervical spine was performed without intravenous contrast. Automated exposure control and iterative reconstruction technique were employed. Exam dose: 103.97 mGy-cm total exam DLP. COMPARISON: None FINDINGS: This is likely noted are emphysematous changes at the lung apices. No cervical mass lesion or adenopathy is evident. C1 and C2 are normally aligned and the odontoid process is intact. No fracture or dislocation or lock ed facet of the cervical spine. There is slight anterolisthesis at C4-5. Moderate degenerative disc disease at C5-6. Degenerative changes noted at the apophyseal joints and primarily right C5-6 uncovertebral joint.. IMPRESSION: Degenerative changes of the cervical spine; no fracture or dislocation or locked facet Reviewed, dictated and finalized at Location [facility]. Reviewed, dictated and finalized at location A. IMPRESSION: Degenerative changes of the cervical spine; no fracture or disloca tion or locked facet
[2021-04-13 03:39] LABS: Alveolar/Arterial O2 Gradient 77.4 mmHg; Base Excess ABG 19.4 mEq/l (+/-2.0); Fractional Inspired Oxygen 36 %; HCO3 ABG 48.7 mEq/l (22.0-26.0); Oxygen Content ABG 15.6 %vol (16.0-22.0); Oxygen Saturation ABG 94.9 % (95.0-100.0); Oxyhemoglobin 93.5 % THb (90.0-100.0); PO2 ABG 80.5 mmHg (80.0-100.0); PO2 FiO2 Ratio Arterial Blood 2.24 %; Total Hemoglobin 11.8 g/dL (12.0-18.0); pH ABG 7.375 (7.350-7.450)
[2021-04-13 03:40] LABS: Modified Allen's Test Pass; PCO2 ABG 85.2 mmHg (35.0-45.0); Site Drawn LEFT RADIAL
[2021-04-13 03:41] LABS: Device NASAL CANNULA
[2021-04-13 04:31] LABS: Basophils Percent Auto 0.3 % (0.2-1.2); Eosinophils Percent Auto 0.1 % (0-4.4); Hematocrit 35.8 % (37.0-47.0); Hemoglobin 10.9 g/dL (12.0-15.0); Immature Granulocyte Absolute 0.03 K/mm3 (0.00-0.031); Immature Granulocyte Percent A 0.4 % (0-0.5); Lymphocytes Percent Auto 14.8 % (18.3-44.2); Mean Corpuscular HGB Conc 30.4 g/dl (32-36); Mean Corpuscular Hemoglobin 28.8 pg (26-34); Mean Corpuscular Volume 94.7 fl (80-100); Mean Platelet Volume 9.9 fl (7.4-10.4); Monocytes Absolute Auto 0.4 K/mm3 (0.1-0.6); Monocytes Percent Auto 5.8 % (2.6-8.5); Neutrophils Absolute Auto 5.3 K/mm3 (1.3-6.7); Neutrophils Percent Auto 78.6 % (45.5-73.1); Platelet Count Result 167 k/mm3 (150-375); Red Blood Count 3.78 M/mm3 (4.2-5.4); Red Cell Distribution Width 12.3 % (11.5-14.5); White Blood Count 6.8 K/mm3 (4.5-10.0)
[2021-04-13 04:44] LABS: Prothrombin Time 13.4 Seconds (11.1-14.7)
[2021-04-13 04:45] LABS: Partial Thromboplastin Time 29.5 SECONDS (22.3-36.8)
[2021-04-13 04:46] LABS: Ethanol < 10 mg/dL (<10); Magnesium 1.9 mg/dL (1.6-2.3)
[2021-04-13 04:52] LABS: NT Pro B Type Natriuretic Pept 73 pg/mL (5-100)
[2021-04-13 04:56] LABS: Troponin I < 0.012 ng/mL (0.000-0.034)
[2021-04-13 05:14] LABS: Alanine Aminotransferase 9 U/L (4-35); Albumin Level 4.2 g/dL (3.5-5.1); Alkaline Phosphatase 58 U/L (38-126); Aspartate Amino Transferase 22 U/L (14-36); Bilirubin,Total 0.7 mg/dL (0.2-1.3); Blood Urea Nitrogen 9 mg/dL (7-17); Calcium 9.6 mg/dL (8.4-10.2); Carbon Dioxide > 40 mmol/L (22-30); Chloride 81 mmol/L (98-107); Estimated CRCL calculation 85 ml/min; Estimated Glomerular Filt Rate > 60; Glucose 90 mg/dL (65-105); Potassium 4.1 mmol/L (3.4-5.0); Sodium 136 mmol/L (137-145)
--- NOTE | 2021-04-13 05:18 | ED.GENADULT ---
HPI - General Adult General Chief complaint: Fall Stated complaint: glf on blood thinners, weakness, rt leg edema Time Seen by Provider: 04/13/21 03:08 History of Present Illness HPI narrative: Patient is a 55-year-old female presents the emergency department with chief complaint of altered mental status. Patient has history of COPD and is normally on a trilogy machine and has not been using it much over the last several days due to a ill fitting nasal mask. Patient apparently rolled out of bed and was somewhat confused and EMS was called. Upon arrival to the emergency department patient reported to be a little bit slower than normal and was not answering her normal questions patient is on Eliquis but has not been taking it for the last 2 weeks due to it being out of her medication. The patient states that she is not having any chest pain. Patient denies laceration or significant injury. Related Data Home Medications Medication Instructions Recorded Confirmed albuterol sulfate 2.5 mg INHALATION DAILY PRN 11/20/20 11/20/20 Allergies Allergy/AdvReac Type Severity Reaction Status Date / Time Penicillins AdvReac Mild Hives Verified 04/07/21 14:45 Review of Systems Review of Systems: Narrative: A 10 system review of systems was completed on the patient and is negative except for what is stated in the HPI. Nursing and ancillary documentation was reviewed. [facility] Past Medical History Medical History Anemia Angina at rest Asthma Bronchitis COPD (chronic obstructive pulmonary disease) Kidney stone Lung nodule On home oxygen therapy 2L at rest, 3L with activity Post-menopausal Pulmonary embolism Pulmonary hypertension Seizure Surgical History Surgical History H/O section H/O tubal ligation History of right oophorectomy Hx of tonsillectomy Family History Family History Grandparent Family history of cardiovascular disease Hypertension History of blood clots Congestive heart failure Mother Family history of cardiovascular disease Family history of elevated blood lipids Chronic obstructive pulmonary disease Diabetes mellitus Sibling Chronic obstructive pulmonary disease Diabetes mellitus Social History Social History Smoking packs per day: 0.2 Smoking cigarettes per day: 4.0 Years smoked: 35 Smoking pack-years: 7.00 Smoking status: Current every day smoker Tobacco type: cigarettes Second hand tobacco smoke exposure: Yes Additional smoking assessment comments: 2-3 a day Alcohol intake: former Substance use: never Substance use type: does not use Gender identity (if verbalized by the patient): Female Spiritual care concerns: No Agree to blood products: Yes Exam Narrative: Exam Narrative: GENERAL: Well-appearing, well-nourished, and in no acute distress. HEAD: Normocephalic, atraumatic. EYES: PERRLA and EOMI. ENT: Nares clear, no rhinorrhea or epistaxis. Mucous membranes moist. NECK: Supple. CHEST: Clear to auscultation. No respiratory distress. HEART: Regular rate and rhythm. No murmur heard. Normal peripheral pulses. ABDOMEN: Soft, nontender, nondistended, normal active bowel sounds. EXTREMITIES: Normal range of motion. 2+ edema. SKIN: Warm, dry, no rash. NEURO: No focal deficits. Alert and oriented x3. PSYCH: Normal mood and affect. Course Course Emergency Course: Patient's chest x-ray showed no evidence of infiltrate. CT head CT C-spine showed no evidence of fracture or acute intracranial process. ED showed a normal pH with a PCO2 of 85 Vital Signs Vital signs: Vital Signs Temperature 36.7 C 04/13/21 02:24 Pulse Rate 108 H 04/13/21 02:24 Respiratory Rate 18 04/13/21 02:24 Blood Pressure 1
[2021-04-13] MEDS: methylPREDNISolone SOD SUCC 125 MG VIAL IV PUSH (06:12)
--- NOTE | 2021-04-13 06:36 | PCRCNOTE ---
patient refused abg; Charge nurse and the doctor are both aware
[2021-04-13] MEDS: ALBUTEROL SULFATE NEB 2.5 MG/0.5 ML INH 5 MG INHALATION (08:15)
[2021-04-13] MEDS: IPRATROPIUM BR 0.02% INH SOLN 0.5 MG/2.5 ML VIAL INHALATION ×3 (08:15→20:14)
--- NOTE | 2021-04-13 09:34 | PC.NURSE ---
This patient, Jaclyn Kessler, was admitted to IMU Room 203-01. Patient/family oriented to hospital policies and general routines including ID bracelet, bed and alarms, visiting hours, pain management, procedures, bathroom and other care routines, personal items, smoking policy, room service/diet, and visiting hours. Information on how to activate the Rapid Response Team has been discussed. Patient/Family are encouraged to report perceived risks to care and to ask questions if they do not understand what they are told or what they should do.
--- NOTE | 2021-04-13 10:39 | PM.CNPUL ---
Assessment and Plan Assessment and plan (1) COPD (chronic obstructive pulmonary disease): Qualifiers: COPD type: unspecified COPD Qualified Code(s): J44.9 - Chronic obstructive pulmonary disease, unspecified Code(s): J44.9 - Chronic obstructive pulmonary disease, unspecified Status: Chronic Assessment and Plan: Current tobacco user with COPD (no PFTs available) with chronic hypoxemic respiratory failure on 3 to 3.5 L nasal cannula oxygen 24-7 and chronic hypercarbic respiratory failure on a home trilogy machine (ABG 11/21/20 7.43/72/91 on BiPAP 14/8), mild panlobular emphysema on CT scan 12/21/2019, pulmonary hypertension with RVSP 58 on echo from 01/21/2019 who presented to hospital on 04/12 with weakness and lethargy. Her blood gas on 4 L shows chronic hypercarbic respiratory failure with pH of 7.38/85/81 and she was empirically placed on BiPAP 16/8 and that was titrated to 18/8 and 40%. 04/13 patient has no evidence of an active COPD exacerbation at this time And I will discontinue Solu-Medrol and continue Her home regimen of beta agonists, muscarinic antagonist and inhaled corticosteroids with albuterol 2.5 mg nebs Q 6 hours, ipratropium 0.5 mg nebs q.6 hours, busedonide 0.5 mg neb BID. I will not start systemic steroids or antibiotics at this point. Nasal cannula oxygen to maintain saturations 90-94%. (2) Chronic hypercapnic respiratory failure: Code(s): J96.12 - Chronic respiratory failure with hypercapnia Status: Chronic Assessment and Plan: 04/13 Patient is not been using her home trilogy for a number of weeks given her ill-fitting nasal pillows. Patient states she is much improved and her mental status according to the is 80% back to normal. I have contacted our clinical coordinator to obtain a download from [employer] so that I will have a copy of her trilogy home settings that I can replicate at our hospital. (3) Pulmonary embolism: Qualifiers: Acute cor pulmonale presence: unspecified Chronicity: unspecified Pulmonary embolism type: unspecified Qualified Code(s): I26.99 - Other pulmonary embolism without acute cor pulmonale Code(s): I26.99 - Other pulmonary embolism without acute cor pulmonale Status: Chronic Assessment and Plan: Patient with recurrent PEs on lifelong Eliquis (10/15/2017 and 12/21/2019). Will start Eliquis 5 mg p.o. Q b.i.d. and obtain right lower extremity Dopplers to exclude DVT. History of Present Illness History of Present Illness Consult date: 04/13/21 Requesting physician: Juan Miguel Fallon MD Reason for consult: COPD Chief complaint: acute exacerbation of copd,hypercarbia Narrative: This is a new patient consult for COPD with chronic hypercarbic and hypoxemic respiratory failure 55-year-old woman with a history of recurrent PEs on lifelong Eliquis (10/15/2017 and 12/21/2019), current tobacco user with COPD (no PFTs available) with chronic hypoxemic respiratory failure on 3 to 3.5 L nasal cannula oxygen 24-7 and chronic hypercarbic respiratory failure on a home trilogy machine (ABG 11/21/20 7.43/72/91 on BiPAP 21/05), mild panlobular emphysema on CT scan 12/21/2019, pulmonary hypertension with RVSP 58 on echo from 01/21/2019 who presented to hospital on 04/12 with weakness and lethargy. Patient is accompanied by her and states that over the last 1-2 weeks the patient has been unable to wear her trilogy machine at night or during the day because the nasal pillows were too small. The attempted to get new nasal pillows from the [employer] but this was unsuccessful. Patient had no fever, chills, rigors, change in her phlegm volume, change in her phlegm color, no hemoptysis, no wheezing and no chest pain according to the patient's . Patient's noted that the the patient was lethargic on 04/12 in this continued to worsen and She had a episode where she leaned or slipped down so he brought to her
[2021-04-13 10:50] LABS: Troponin I < 0.012 ng/mL (0.000-0.034)
--- NOTE | 2021-04-13 12:17 | PC.NURSE ---
To be noted - all charting on this patient on 04/13/21 from [id number] was noted to be as Karuna Ny. This was an error. All charting during this time was completed by Colette Hassan RN.
[2021-04-13 12:31] LABS: Troponin I < 0.012 ng/mL (0.000-0.034)
--- NOTE | 2021-04-13 14:08 | PM.IMHP ---
H&P: HPI History of Present Illness Date/Time: 04/13/21 14:08 patient is a 55-year-old female with history of COPD unfortunately patient still smokes, history of chronic respiratory failure on home oxygen, also has history of hypercapnic respiratory failure on trilogy at home apparently patient trilogy mask was not fitting right and was not using her trilogy and was quite hypoxic and somnolent and was brought to the emergency department further evaluation upon arrival ABG showed patient pH 7.35 and pCO2 85.2 patient was placed on BiPAP and her mentation has improved, patient was seen by her police investigator does not suspect patient has exacerbation of COPD and took the patient off Solu-Medrol and continue home regimen with inhaler, currently patient is feeling much better compared to when she arrived, her is present in the room and brought her trilogy from home, respiratory therapy will help place the patient on her trilogy will continue to monitor. once clinically stable further recommendation to follow. patient is admitted under observation status Chief Complaint: acute mental status change Review of Systems Review of Systems: All systems reviewed & are unremarkable except as noted in HPI and below PMFSH Past Medical History Medical History Anemia Angina at rest Asthma Bronchitis COPD (chronic obstructive pulmonary disease) Kidney stone Lung nodule On home oxygen therapy 2L at rest, 3L with activity Post-menopausal Pulmonary embolism Pulmonary hypertension Seizure Surgical History Surgical History H/O section H/O tubal ligation History of right oophorectomy Hx of tonsillectomy Family History Family History Grandparent Family history of cardiovascular disease Hypertension History of blood clots Congestive heart failure Mother Family history of cardiovascular disease Family history of elevated blood lipids Chronic obstructive pulmonary disease Diabetes mellitus Sibling Chronic obstructive pulmonary disease Diabetes mellitus Social History Social History Smoking packs per day: 0.2 Smoking cigarettes per day: 4.0 Years smoked: 35 Smoking pack-years: 7.00 Smoking status: Current every day smoker Tobacco type: cigarettes Second hand tobacco smoke exposure: Yes Additional smoking assessment comments: 2-3 a day Alcohol intake: never Substance use: never Substance use type: does not use Gender identity (if verbalized by the patient): Female Spiritual care concerns: No Agree to blood products: Yes Meds Home Medications and Allergies Home Medications Medication Instructions Recorded Confirmed Type acetaminophen [Mapap 650 mg PO Q4H PRN #0 tablet 12/24/19 04/13/21 Rx (acetaminophen)] albuterol sulfate 2.5 mg INHALATION DAILY PRN 11/20/20 04/13/21 History budesonide 0.5 mg/2 mL suspension See Rx Instructions .ROUTE 02/21/21 04/13/21 Rx for nebulization .COMPLEX 90 Days #360 ml revefenacin 175 mcg/3 mL solution 175 mcg INHALATION DAILY 90 Days 02/21/21 04/13/21 Rx for nebulization #270 ml apixaban 5 mg tablet 5 mg PO BID #60 tablet 04/08/21 04/13/21 Rx albuterol sulfate See Rx Instructions .ROUTE 04/13/21 04/13/21 History .COMPLEX PRN Allergies Allergy/AdvReac Type Severity Reaction Status Date / Time Penicillins AdvReac Mild Hives Verified 04/07/21 14:45 Vital Signs Vital Signs - 24 hr 04/13/21 02:24 04/13/21 03:01 04/13/21 03:02 Temperature 98.1 F Pulse Rate 108 H 89 95 Respiratory Rate 18 22 H 25 H Blood Pressure 139/87 142/33 H Pulse Oximetry 90 04/13/21 04:05 04/13/21 04:16 04/13/21 04:17 Temperature Pulse Rate 98 88 111 H Respiratory Rate 22 H 29 H 25 H Blood Pr
[2021-04-13] MEDS: ALBUTEROL SULFATE NEB 2.5 MG/0.5 ML INH INHALATION ×2 (14:47→20:14)
[2021-04-13 15:55] LABS: Add Urine Microscopic? YES; Appearance Urine Clear (Clear); Bilirubin Urine Negative (Negative); Blood Urine 1+ (Negative); Color Urine Colorless (Yellow); Glucose Urine UA Negative (Negative); Ketones Urine Negative (Negative); Leukocyte Esterase Ur Negative LEU/UL (Negative); Nitrate Urine Negative (Negative); Protein Urine Negative (Negative); RBC Urine 0-2 /hpf (0-2); Squamous Epithelial Cell Urine Occasional /hpf (Few); Urobilinogen Urine Negative mg/dL (<2.0); WBC Urine 0-3 /hpf
[2021-04-13 16:13] LABS: Specific Grav Ur 1.002 (1.001-1.035)
--- NOTE | 2021-04-13 16:36 | PC.NURSE ---
Patient family will bring home medication, Jeremias, April 14.
[2021-04-13] MEDS: BUDESONIDE RESPULE NEB 0.5 MG/2 ML AMP INHALATION (20:14)
[2021-04-13] MEDS: APIXABAN 5 MG TABLET PO (20:48)
[2021-04-14] VITALS (11 sets, daily range): BP systolic 119–124; BP diastolic 54–74; PULSE 71–103; RESP 14–22; TEMP 36.4–36.9; O2SAT 93–98
[2021-04-14] MEDS: IPRATROPIUM BR 0.02% INH SOLN 0.5 MG/2.5 ML VIAL INHALATION ×2 (02:15→07:50)
[2021-04-14] MEDS: ALBUTEROL SULFATE NEB 2.5 MG/0.5 ML INH INHALATION ×2 (02:15→07:50)
[2021-04-14 05:36] LABS: Basophils Percent Auto 0.3 % (0.2-1.2); Eosinophils Percent Auto 0.4 % (0-4.4); Hematocrit 33.4 % (37.0-47.0); Immature Granulocyte Absolute 0.02 K/mm3 (0.00-0.031); Immature Granulocyte Percent A 0.3 % (0-0.5); Lymphocytes Absolute Auto 2.37 K/mm3 (0.9-3.2); Lymphocytes Percent Auto 34.2 % (18.3-44.2); Mean Corpuscular HGB Conc 29.9 g/dl (32-36); Mean Corpuscular Hemoglobin 28.5 pg (26-34); Mean Corpuscular Volume 95.2 fl (80-100); Mean Platelet Volume 9.9 fl (7.4-10.4); Monocytes Absolute Auto 0.7 K/mm3 (0.1-0.6); Neutrophils Absolute Auto 3.8 K/mm3 (1.3-6.7); Neutrophils Percent Auto 54.8 % (45.5-73.1); Platelet Count Result 160 k/mm3 (150-375); Red Blood Count 3.51 M/mm3 (4.2-5.4); Red Cell Distribution Width 12.5 % (11.5-14.5); White Blood Count 6.9 K/mm3 (4.5-10.0)
[2021-04-14 05:56] LABS: Blood Urea Nitrogen 11 mg/dL (7-17); Calcium 9.3 mg/dL (8.4-10.2); Carbon Dioxide > 40 mmol/L (22-30); Chloride 86 mmol/L (98-107); Estimated CRCL calculation 103 ml/min; Estimated Glomerular Filt Rate > 60; Glucose 87 mg/dL (65-105); Magnesium 1.8 mg/dL (1.6-2.3); Potassium 3.6 mmol/L (3.4-5.0); Sodium 135 mmol/L (137-145)
[2021-04-14 06:08] LABS: Hypochromasia 2+ (NORMAL); Platelet Estimate Adequate (Adequate); Stomatocytes 2+ (NORMAL)
[2021-04-14] MEDS: BUDESONIDE RESPULE NEB 0.5 MG/2 ML AMP INHALATION (07:50)
[2021-04-14] MEDS: APIXABAN 5 MG TABLET PO (08:57)
--- NOTE | 2021-04-14 10:39 | PM.PNPUL ---
Progress Note: A&P Assessment and Plan (1) COPD (chronic obstructive pulmonary disease): Qualifiers: COPD type: unspecified COPD Qualified Code(s): J44.9 - Chronic obstructive pulmonary disease, unspecified Code(s): J44.9 - Chronic obstructive pulmonary disease, unspecified Status: Chronic Assessment and Plan: Current tobacco user with COPD (no PFTs available) with chronic hypoxemic respiratory failure on 3 to 3.5 L nasal cannula oxygen 24-7 and chronic hypercarbic respiratory failure on a home trilogy machine (ABG 11/21/20 7.43/72/91 on BiPAP 14/8), mild panlobular emphysema on CT scan 12/21/2019, pulmonary hypertension with RVSP 58 on echo from 01/21/2019 who presented to hospital on 04/12 with weakness and lethargy. Her blood gas on 4 L shows chronic hypercarbic respiratory failure with pH of 7.38/85/81 and she was empirically placed on BiPAP 16/8 and that was titrated to 18/8 and 40%. 04/13 patient has no evidence of an active COPD exacerbation at this time And I will discontinue Solu-Medrol and continue Her home regimen of beta agonists, muscarinic antagonist and inhaled corticosteroids with albuterol 2.5 mg nebs Q 6 hours, ipratropium 0.5 mg nebs q.6 hours, busedonide 0.5 mg neb BID. I will not start systemic steroids or antibiotics at this point. Nasal cannula oxygen to maintain saturations 90-94%. 04/14 Patient now states that she is at her baseline. She has no wheezing and says that she is breathing at baseline on her home regimen of beta agonists, muscarinic antagonist and inhaled corticosteroids with albuterol 2.5 mg nebs Q 6 hours, ipratropium 0.5 mg nebs q.6 hours, busedonide 0.5 mg neb BID. Ready for discharge from pulmnary perspective on the pulmonary medications: Albuterol neb 2.5 mg Q ID Yupelri 175 mcg neb Q day Budesonide 0.5 mg neb Q day Oxygen 3 L with rest and ambulation AVAPS rate of 5, tidal volume 315, EPAP Min 5, EPAP max 10, pressure support Min 5, pressure support max 20, maximum pressure 26 breath rate is auto rise time is 3 with full face mask. She can take hospital mask and order placed to [facility] to fit her for full face mask. Follow up with pulmonary in 3-4 weeks. (2) Chronic hypercapnic respiratory failure: Code(s): J96.12 - Chronic respiratory failure with hypercapnia Status: Chronic Assessment and Plan: 04/13 Patient is not been using her home trilogy for a number of weeks given her ill-fitting nasal pillows. Patient states she is much improved and her mental status according to the is 80% back to normal. I have contacted our clinical coordinator to obtain a download from [employer] so that I will have a copy of her trilogy home settings that I can replicate at our hospital. 04/14 I have obtained a download from [employer]. Patient is on a AVAPS AE mode with an AVAPS rate of 5, tidal volume 315, EPAP Min 5, EPAP max 10, pressure support Min 5, pressure support max 20, maximum pressure 26 breath rate is auto rise time is 3. As patient tells me she has not worn her machine since 03/09/21 Because of her ill fitting nasal pillows. This accounts for her altered mental status which has improved now after 2 nights of noninvasive ventilation. Prior to that her average EPAP was 7.82, average IPAP was 18 0.1, average tidal volume was 362, average leak was 42 and her apnea count was listed as 0. (3) Pulmonary embolism: Qualifiers: Acute cor pulmonale presence: unspecified Chronicity: unspecified Pulmonary embolism type: unspecified Qualified Code(s): I26.99 - Other pulmonary embolism without acute cor pulmonale Code(s): I26.99 - Other pulmonary embolism without acute cor pulmonale Status: Chronic Assessment and Plan: 04/13 Patient with recurrent PEs on lifelong Eliquis (10/15/2017 and 12/21/2019). Will start Eliquis 5 mg p.o. Q b.i.d. and obtain right lower extremity Dopplers to exclude DVT. 04/14 LE right is negative
--- NOTE | 2021-04-14 10:45 | PCRCNOTE ---
Order for full-face NIV mask faxed to patient's DME provider, Yuli[employer].
--- NOTE | 2021-04-14 12:04 | PM.DS ---
DS: Admitting Diagnosis Admitting Diagnosis Admitting Diagnosis: shortness of breath DS: Discharge Diagnosis Discharge Diagnosis (1) Acute and chronic respiratory failure with hypercapnia: Code(s): J96.22 - Acute and chronic respiratory failure with hypercapnia Status: Acute Assessment and Plan: 04/13/21 14:08 patient is a 55-year-old female with history of COPD unfortunately patient still smokes, history of chronic respiratory failure on home oxygen, also has history of hypercapnic respiratory failure on trilogy at home apparently patient trilogy mask was not fitting right and was not using her trilogy and was quite hypoxic and somnolent and was brought to the emergency department further evaluation upon arrival ABG showed patient pH 7.35 and pCO2 85.2 patient was placed on BiPAP and her mentation has improved, patient was seen by her healthcare administration internship does not suspect patient has exacerbation of COPD and took the patient off Solu-Medrol and continue home regimen with inhaler, currently patient is feeling much better compared to when she arrived, her is present in the room and brought her trilogy from home, respiratory therapy will help place the patient on her trilogy will continue to monitor. once clinically stable further recommendation to follow. patient is admitted under observation status (2) COPD (chronic obstructive pulmonary disease): Qualifiers: COPD type: unspecified COPD Qualified Code(s): J44.9 - Chronic obstructive pulmonary disease, unspecified Code(s): J44.9 - Chronic obstructive pulmonary disease, unspecified Status: Chronic Assessment and Plan: unfortunately patient still smokes seen by her healthcare administration internship, (3) Pulmonary hypertension: Code(s): I27.20 - Pulmonary hypertension, unspecified Status: Acute Assessment and Plan: secondary to chronic sleep apnea and chronic pulmonary emboli (4) Pulmonary embolism: Qualifiers: Acute cor pulmonale presence: unspecified Chronicity: unspecified Pulmonary embolism type: unspecified Qualified Code(s): I26.99 - Other pulmonary embolism without acute cor pulmonale Code(s): I26.99 - Other pulmonary embolism without acute cor pulmonale Status: Chronic Assessment and Plan: patient with chronic pulmonary emboli on Eliquis (5) Acute encephalopathy: Code(s): G93.40 - Encephalopathy, unspecified Status: Resolved Assessment and Plan: most likely secondary to hypercapnic respiratory failure DS: Summary Hospital Course Reason for hospitalization: patient is a 55-year-old female with history of COPD unfortunately patient still smokes, history of chronic respiratory failure on home oxygen, also has history of hypercapnic respiratory failure on trilogy at home apparently patient trilogy mask was not fitting right and was not using her trilogy and was quite hypoxic and somnolent and was brought to the emergency department further evaluation upon arrival ABG showed patient pH 7.35 and pCO2 85.2 patient was placed on BiPAP and her mentation has improved, patient was seen by her healthcare administration internship does not suspect patient has exacerbation of COPD and took the patient off Solu-Medrol and continue home regimen with inhaler, currently patient is feeling much better compared to when she arrived, her is present in the room and brought her trilogy from home, respiratory therapy will help place the patient on her trilogy will continue to monitor. once clinically stable further recommendation to follow. Hospital Course: patient is a 55-year-old female with history of COPD unfortunately patient still smokes, history of chronic respiratory failure on home oxygen, also has history of hypercapnic respiratory failure on trilogy at home apparently patient trilogy mask was not fitting right and was not using her trilogy and was quite hypoxic and somnolent and was brought to the e
== END 2021-04-14 13:35 | disposition home or self-care (01) ==
LOC: ANHED 06:00 → ANHIMU 07:30
PROVIDERS: Admitting Provider Internal Medicine; Emergency Provider Emergency Medicine; PCP Family Medicine; Visit Provider Family Medicine
DX: J96.22 Acute and chronic respiratory failure with hypercapnia (principal); J96.11 Chronic respiratory failure with hypoxia; G93.40 Encephalopathy, unspecified; I27.82 Chronic pulmonary embolism; J44.9 Chronic obstructive pulmonary disease, unspecified; I20.9 Angina pectoris, unspecified; I27.20 Pulmonary hypertension, unspecified; R06.2 Wheezing; R91.1 Solitary pulmonary nodule; R56.9 Unspecified convulsions; M47.812 Spondylosis without myelopathy or radiculopathy, cervical region; F17.210 Nicotine dependence, cigarettes, uncomplicated; Z99.81 Dependence on supplemental oxygen; Z87.442 Personal history of urinary calculi; Z79.01 Long term (current) use of anticoagulants; Z90.721 Acquired absence of ovaries, unilateral
CPT/HCPCS: 36415; 36600; 70450; 71045; 72125; 80048; 80053; 80307; 81001; 82805; 83605; 83735; 83880; 84484; 85025; 85610; 85730; 93971; 94002; 94640; 96374; 99285; A9270; G0378; J2930

== ENCOUNTER 2021-05-01 09:53 | Emergency (ER) | payer BC, SELFPAY ==
[2021-05-01] VITALS (9 sets, daily range): BP systolic 97–133; BP diastolic 63–82; PULSE 74–98; RESP 15–34; TEMP 36.4–36.9; O2SAT 94–100
--- NOTE | ~2021-05-01 | CT_ITS ---
EXAMINATION: CTA chest PE protocol DATE: 05/01/2021 12:34 INDICATION: Right chest pain after a fall. Shortness of breath. TECHNIQUE: Computed tomography angiography (CTA) of the chest was performed with 100 mL Omnipaque-350 intravenous contrast timed to evaluate the pulmonary arteries. Coronal maximum intensity projection 3D-reconstructions were created by the technologist. Automated exposure control and iterative reconst ruction technique were employed. Exam dose: 183.18 mGy-cm total exam DLP. COMPARISON: 12/21/2019 CT pulmonary scan FINDINGS: There is diagnostic contrast enhancement of the pulmonary arteries and no evidence of pulmo nary embolism. No hilar or mediastinal mass lesion or lymphadenopathy. No thoracic aortic aneurysm or dissection. Normal heart size. No pericardial or pleural effusion. Emphysematous changes of the lungs. No pulmonary infiltrate or consolidation or suspicious pulmonary mass lesion is detected. Small sliding hiatal hernia. There are multiple hepatic and splenic calcified granulomas. Fat-containing bilateral foramen of Bochdalek hernias, right greater than left. Included skeletal structures are unremarkable. IMPRESSION: No evidence of pulmonary embolism Reviewed, dictated and finalized at [facility]. Reviewed, dictated and finalized at [facility].
--- NOTE | 2021-05-01 10:12 | ED.FALL ---
HPI - Fall General Chief Complaint: Fall Stated Complaint: FELL- R SIDE PAIN Time Seen by Provider: 05/01/21 10:04 History of Present Illness HPI Narrative: 56 yo female w/ h/o severe COPD presents to the ED for chest wall pain. She reportedly fell against a metal trash can yesterday and she has had painin her ribs since that time. The pain has continued to increase in severity. She is on 3 liters of oxygen at baseline. Her O2 saturation was 77 in triage, although this was apparently not recorded. Related Data Home Medications Medication Instructions Recorded Confirmed albuterol sulfate 05/01/21 apixaban [Eliquis] mg 05/01/21 revefenacin [Yupelri] 175 mcg INHALATION DAILY 05/01/21 Allergies Allergy/AdvReac Type Severity Reaction Status Date / Time Penicillins AdvReac Mild Hives Verified 05/01/21 10:28 Review of Systems Review of Systems: All systems reviewed & are unremarkable except as noted in HPI and below Constitutional: Constitutional: Denies chills and Denies fever(s) Cardiovascular: Cardiovascular: Reports chest pain Respiratory: Respiratory: Reports dyspnea Gastrointestinal: Gastrointestinal: Denies abdominal pain and Denies nausea Musculoskeletal: Musculoskeletal: Denies back pain Neurologic: Reports weakness PMFSH Past Medical History Medical History Anemia Angina at rest Asthma Bronchitis COPD (chronic obstructive pulmonary disease) Kidney stone Lung nodule On home oxygen therapy 2L at rest, 3L with activity Post-menopausal Pulmonary embolism Pulmonary hypertension Seizure Surgical History Surgical History H/O section H/O tubal ligation History of right oophorectomy Hx of tonsillectomy Family History Family History Grandparent Family history of cardiovascular disease Hypertension History of blood clots Congestive heart failure Mother Family history of cardiovascular disease Family history of elevated blood lipids Chronic obstructive pulmonary disease Diabetes mellitus Sibling Chronic obstructive pulmonary disease Diabetes mellitus Social History Social History Smoking packs per day: 0.2 Smoking cigarettes per day: 4.0 Years smoked: 35 Smoking pack-years: 7.00 Smoking status: Current every day smoker Tobacco type: cigarettes Second hand tobacco smoke exposure: Yes Additional smoking assessment comments: 2-3 a day Alcohol intake: never Substance use: never Substance use type: does not use Gender identity (if verbalized by the patient): Female Spiritual care concerns: No Agree to blood products: Yes Exam Const: General: ill appearing Other: moderate distress, cyanotic HENMT: Head: normal to inspection Eyes: Pupils: Equal, round and reactive pupils present Chest: Chest palpation & inspection: tenderness rib (right lower) Resp: Effort & Inspection: labored and tachypneic Auscultation: wheezes Cardio: Rate: regular rate Rhythm: regular rhythm Skin: Other: cyanosis Neuro: General: patient oriented x3 and moves all extremities Extrem: General: edema right (2+) Psych: Mental Status: mental status grossly normal Course Vital Signs Vital signs: Vital Signs Pulse Rate 74 05/01/21 10:04 Respiratory Rate 23 H 05/01/21 10:04 Blood Pressure 97/82 L 05/01/21 10:04 Pulse Oximetry 94 05/01/21 10:04 Temperature 36.4 C L 05/01/21 10:18 Pulse Rate 92 05/01/21 13:31 Respiratory Rate 15 05/01/21 13:31 Blood Pressure 105/63 05/01/21 13:31 Pulse Oximetry 99 05/01/21 13:31 MDM - Fall MDM Narrative Medical decision making narrative: No rib fracture, no PE. Breathing better after nebulizer treatemnt. She is adamant that she does not want to stay in the hospit
--- NOTE | 2021-05-01 10:35 | PCRCNOTE ---
PT. REFUSED ABG; DR. KEITH NOTIFIED.
[2021-05-01] MEDS: ALBUTEROL SULFATE NEB 2.5 MG/0.5 ML INH 5 MG INHALATION (10:38)
[2021-05-01] MEDS: IPRATROPIUM BR 0.02% INH SOLN 0.5 MG/2.5 ML VIAL INHALATION (10:38)
[2021-05-01 10:41] LABS: Basophils Percent Auto 0.4 % (0.2-1.2); Eosinophils Absolute Auto 0.1 K/mm3 (0-0.3); Eosinophils Percent Auto 1.6 % (0-4.4); Hematocrit 35.1 % (37.0-47.0); Hemoglobin 10.3 g/dL (12.0-15.0); Immature Granulocyte Absolute 0.02 K/mm3 (0.00-0.031); Immature Granulocyte Percent A 0.3 % (0-0.5); Lymphocytes Absolute Auto 2.38 K/mm3 (0.9-3.2); Mean Corpuscular HGB Conc 29.3 g/dl (32-36); Mean Corpuscular Hemoglobin 28.6 pg (26-34); Mean Corpuscular Volume 97.5 fl (80-100); Mean Platelet Volume 9.9 fl (7.4-10.4); Monocytes Absolute Auto 0.4 K/mm3 (0.1-0.6); Monocytes Percent Auto 6.3 % (2.6-8.5); Neutrophils Absolute Auto 3.8 K/mm3 (1.3-6.7); Neutrophils Percent Auto 56.4 % (45.5-73.1); Platelet Count Result 178 k/mm3 (150-375); Red Cell Distribution Width 12.8 % (11.5-14.5); White Blood Count 6.8 K/mm3 (4.5-10.0)
[2021-05-01 10:55] LABS: Prothrombin Time 12.9 Seconds (11.1-14.7)
[2021-05-01 10:56] LABS: Partial Thromboplastin Time 32.2 SECONDS (22.3-36.8)
[2021-05-01 10:59] LABS: Lactic Acid Reflex 1.5 mmol/L (0.7-2.1)
[2021-05-01 11:01] LABS: Hypochromasia 2+ (NORMAL); Platelet Estimate Adequate (Adequate); Stomatocytes 1+ (NORMAL)
[2021-05-01 11:20] LABS: Blood Urea Nitrogen 12 mg/dL (7-17); Calcium 9.1 mg/dL (8.4-10.2); Carbon Dioxide > 40 mmol/L (22-30); Chloride 79 mmol/L (98-107); Estimated CRCL calculation 102 ml/min; Estimated Glomerular Filt Rate > 60; Glucose 99 mg/dL (65-110); Potassium 4.3 mmol/L (3.4-5.0); Sodium 135 mmol/L (137-145)
[2021-05-01] MEDS: MORPHINE SULFATE (*CRX) 2 MG/ML INJ IV PUSH (12:24)
--- NOTE | 2021-05-01 13:26 | ECG_ITS ---
Measurements Intervals Lyons Rate: 67 P: 81 OR: 160 QRS: 84 QRSD: 77 T: 76 QT: 377 QTc: 400 Interpretive Statements SINUS RHYTHM MINIMAL Q WAVES- INFERIOR LEADS BASELINE ARTIFACT- I, II, III, AVR, AVL, AVF, V1-V6 BORDERLINE ECG Electronically Signed On 05-01-2021 16:23:46 CDT by Fitz Green D.O.
== END 2021-05-01 14:55 | disposition home or self-care (01) ==
PROVIDERS: Emergency Provider Emergency Medicine; PCP Family Medicine
DX: S20.211A Contusion of right front wall of thorax, initial encounter (principal); J44.9 Chronic obstructive pulmonary disease, unspecified; I27.20 Pulmonary hypertension, unspecified; Z99.81 Dependence on supplemental oxygen; F17.210 Nicotine dependence, cigarettes, uncomplicated; Z87.442 Personal history of urinary calculi; Z86.711 Personal history of pulmonary embolism; Z79.01 Long term (current) use of anticoagulants; R94.31 Abnormal electrocardiogram [ECG] [EKG]; W01.198A Fall on same level from slipping, tripping and stumbling with subsequent striking against other object, initial encounter
CPT/HCPCS: 36415; 71275; 80048; 83605; 85025; 85610; 85730; 93005; 94640; 96374; 99284; J2270; Q9967